=== PATIENT | female | born 1965 | race Caucasian/White ===

== ENCOUNTER → 2020-11-01 15:47 | Outpatient (BNVA) | payer BC, SELFPAY | PROVIDERS: PCP Internal Medicine; Visit Provider Internal Medicine ==

== ENCOUNTER → 2021-05-08 13:38 | Outpatient (BNVA) | payer BC, SELFPAY | PROVIDERS: PCP Internal Medicine; Visit Provider Internal Medicine ==

== ENCOUNTER → 2021-08-01 15:45 | Outpatient (BNVA) | payer BC, SELFPAY | PROVIDERS: PCP Internal Medicine; Visit Provider Internal Medicine ==

== ENCOUNTER → 2021-11-07 15:36 | Outpatient (BNVA) | payer BC, SELFPAY | PROVIDERS: PCP Internal Medicine; Visit Provider Internal Medicine ==

== ENCOUNTER → 2022-10-29 15:26 | Outpatient (BNVA) | payer BC, SELFPAY | PROVIDERS: PCP Internal Medicine; Visit Provider Internal Medicine | DX: Z13.89 Encounter for screening for other disorder (principal) ==

== ENCOUNTER → 2023-03-04 09:45 | Outpatient (BNVA) | payer BC, SELFPAY | PROVIDERS: PCP Internal Medicine; Visit Provider Internal Medicine ==

== ENCOUNTER 2023-04-24 10:39 | Outpatient (AMB) | payer BC, SELFPAY ==
--- NOTE | 2023-04-24 10:42 | MHC.OFFVIS ---
Intake Vital Signs 04/24/23 10:43 Height 5 ft 4 in Weight 123 lb 7.342 oz BMI 21.2 BP 122/78 Blood Pressure Location Lt brachial Position Sitting Pulse 77 Pulse Source Pulse Oximeter Pulse Oximetry (%) 100 Oxygen Delivery Method Room Air Intake Visit Reasons: asthma Hogshead Opener Required: No Allergies amoxicillin Allergy (Unknown, Verified 04/24/23 10:53) stomach upset doxycycline [DOXYCYCLINE] Allergy (Unknown, Verified 04/24/23 10:53) NAUSEA & VOMITING erythromycin base [ERYTHROMYCIN BASE] Allergy (Unknown, Verified 04/24/23 10:53) NAUSEA & VOMITING prednisone Adverse Reaction (Unknown, Verified 04/24/23 10:53) emotional but liquid is ok Medication List - Last Reconciled 04/24/23 by Carly Cordero MD albuterol sulfate 90 mcg/actuation 2 puffs PO Q6H PRN apple cider vinegar 600 mg PO DAILY azelaic acid 15% topical QAM azelastine 2 sprays intranasal BID PRN cholecalciferol (vitamin D3) 50 mcg PO DAILY clotrimazole-betamethasone 1-0.05 % appl topical conj estrog-medroxyprogest alexandra 0.3-1.5 mg 1 tab PO DAILY estradiol 0.01%(0.1mg/gram) 0.5 grams vaginal 3XW Flovent HFA 110 mcg/actuation (fluticasone propionate) 2 puffs PO BID NS fluticasone propionate 50 mcg/actuation 1 spray intranasal DAILY lactobacillus combination no.8 (Adult Probiotic) 3,000 mmu cells PO DAILY metronidazole 1% (Noritate) appl topical multivitamin 1 tab PO DAILY omega 1-cyk-ikf-fish oil 60-90-500 mg (Fish Oil) 1 cap PO DAILY prednisone 10 mg (10 mL) PO BID 6 days Do you need a note to return to daycare/school/sports/work: No HPI asthma HPI Details 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 LATELY SHE HAS BEEN FREE OF ANY NASAL OR RESPIRATORY SYMPTOMS. EXCEPT THAT SHE STILL FEELS SOMEWHAT TIGHT IN HER CHEST OFF AND ON, BLAMES IT ON POOR AIR QUALITY. SHE IS USING FLOVENT-110 2 PUFFS B.I.D. AND HARDLY NEEDS TO USE THE ALBUTEROL THESE DAYS FOR NASAL ALLERGY SHE CONTINUES TO USE AZELASTINE NASAL SPRAY TO SPRAY IS B.I.D. AND ALSO FLONASE 1 SPRAY EACH NOSTRIL DAILY. SHE IS VERY SENSITIVE TO ANY CHANGE IN AIR QUALITY, AND TRIES TO WE ARE THE MASK WHENEVER SHE IS OUTDOORS OR IN PUBLIC PLACES. [facility]LY [facility], [facility] Medical History Allergic rhinitis Asthma Chest discomfort Social History Patient Tobacco Use Status: Never used Tobacco Review of Systems Const All systems reviewed & are unremarkable except as noted in HPI and below Eyes Reports no additional complaints ENT Reports no additional complaints Card Reports chest pain (S more like a burning pain in the mid sternum, not related to any physical ), Denies irregular heart rhythm and Denies leg edema Resp Reports as per HPI GI Reports heartburn (Controlled with Prilosec) Reports no additional complaints Skin/Breast Reports system reviewed and no additional complaints, except as documented Neuro Reports no additional complaints Psych Reports no additional complaints Physical Exam Const General: healthy appearing, comfortable, no acute distress, alert and awake Orientation/consciousness: patient oriented x3 HEENT Head: Yes normal to inspection General nose exam: No nasal polyps present and Other nasal findings present (She has marked deflection of the nasal septum to the right side as usual, ) Face and sinus: Yes sinuses nontender Mouth: oropharynx normal Throat: Yes posterior oropharynx normal Eyes General: appearance normal, both eyes and all related structures Neck Neck: Yes normal visual inspection, Yes no lymphadenopathy, Yes trachea midline and Yes no JVD Thyroid: Thyroid normal Chest Chest palpation & inspection: normal inspection of the chest, normal palpation of entire chest wall and no tenderness Resp Other: Percussion note is very resonant, has good breath sounds, equal on both sides . No wheezes rhonchi or crepitations are heard today. Cardio Palpation: normal PMI Rate: regular rate Rhythm: regular rhythm Heart sounds: no gallops and no murmurs Peripheral pulses: Peripheral pulses 2+ throughout GI Palpation (GI): Soft to palpation, nontender, No hepatosplenomegaly present and no masses Auscultation: normal bowel sounds Back/Spine/Pelvis Thoracic/Lumbar Spine: thoracic and lumbar spine normal to inspection Skin General skin exam: no rashes or lesions noted Neuro General: patient oriented x3 and no focal motor deficits Cranial nerves: Yes CN's II-XII intact bilaterally Extrem General: Yes normal to inspection, Yes no clubbing, cyanosis or edema and Yes no calf tenderness Psych Appearance: grossly normal and well kempt Speech and movement: Normal speech and movement present Assessment & Plan Assessment & Plan (1) Allergic rhinitis: Comment: She has chronic rhinitis, around the year, without specific or identifiable triggers. With the current regimen it is under control. She follows up with ENT specialist ,Dr. Avila . [place] : Azelastin nasal spray 2 sprays in each nare daily Flonase 2 sprays prn Zyrtec 10 mg daily at night ( patient is alerted that she may feel sleepy are tired sometime due to side effect of Zyrtec) Advil sinus and cold tab , in AM Code(s): J30.9 - Allergic rhinitis, unspecified (2) Asthma: Comment: Mild to moderate, intermittent, bronchial asthma, seems well controlled. [place]: Flovent-1102 puffs b.i.d.. If she feels like having an acute exacerbation , she can use 2 puffs Q i.d. for a few days and then go back to b.i.d.. Albuterol HFA 2 puffs Q 4-6 hours p.r.n.. Avoid exposure to anyone with common cold , and is best to we are the mask when she goes outdoors or in public places. Code(s): J45.909 - Unspecified asthma, uncomplicated (3) Chest discomfort: Comment: The description is intermittent and very nonspecific. I explained to her that this does not seem to be related to lungs. But if in doubt she can always is use a few extra doses of Flovent inhaler. Code(s): R07.89 - Other chest pain Coding Level of Care Code Est Pt Level 3 (88828) Diagnoses Allergic rhinitis J30.9 Asthma J45.909 Chest discomfort R07.89
[2023-04-24 10:43] VITALS: BP 122/78; PULSE 77; O2SAT 100; BMI 21.2
== END 2023-04-24 10:55 | disposition home or self-care (01) ==
PROVIDERS: PCP Internal Medicine; Visit Provider Internal Medicine
DX: J45.909 Unspecified asthma, uncomplicated (principal); R07.89 Other chest pain
CPT/HCPCS: 99213

== ENCOUNTER → 2023-04-24 10:39 | Outpatient (BNVA) | payer BC, SELFPAY | PROVIDERS: PCP Internal Medicine; Visit Provider Internal Medicine ==

== ENCOUNTER 2023-05-21 09:18 | Outpatient (AMB) | payer BC, SELFPAY ==
[2023-05-21 09:20] VITALS: BP 128/62; PULSE 82; O2SAT 99; BMI 21.2
--- NOTE | 2023-05-21 09:20 | MHC.OFFVIS ---
Intake Vital Signs 05/21/23 09:20 Height 5 ft 4 in Weight 123 lb 7.342 oz BMI 21.2 BP 128/62 Blood Pressure Location Lt brachial Position Sitting Pulse 82 Pulse Source Pulse Oximeter Pulse Oximetry (%) 99 Oxygen Delivery Method Room Air Intake Visit Reasons: productive cough Allergies amoxicillin Allergy (Unknown, Verified 05/21/23 09:25) stomach upset doxycycline [DOXYCYCLINE] Allergy (Unknown, Verified 05/21/23 09:25) NAUSEA & VOMITING erythromycin base [ERYTHROMYCIN BASE] Allergy (Unknown, Verified 05/21/23 09:25) NAUSEA & VOMITING prednisone Adverse Reaction (Unknown, Verified 05/21/23 09:25) emotional but liquid is ok Medication List - Last Reconciled 05/21/23 by Carly Cordero MD albuterol sulfate 90 mcg/actuation 2 puffs PO Q6H PRN apple cider vinegar 600 mg PO DAILY azelaic acid 15% topical QAM azelastine 2 sprays intranasal BID PRN cholecalciferol (vitamin D3) 50 mcg PO DAILY clotrimazole-betamethasone 1-0.05 % appl topical conj estrog-medroxyprogest alexandra 0.3-1.5 mg 1 tab PO DAILY estradiol 0.01%(0.1mg/gram) 0.5 grams vaginal 3XW Flovent HFA 110 mcg/actuation (fluticasone propionate) 2 puffs PO BID NS fluticasone propionate 50 mcg/actuation 1 spray intranasal DAILY lactobacillus combination no.8 (Adult Probiotic) 3,000 mmu cells PO DAILY metronidazole 1% (Noritate) appl topical multivitamin 1 tab PO DAILY omega 0-uyb-rki-fish oil 60-90-500 mg (Fish Oil) 1 cap PO DAILY prednisone 10 mg (10 mL) PO BID 6 days Do you need a note to return to daycare/school/sports/work: No HPI productive cough HPI Details 58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 She is a known case of chronic allergic rhinitis, and bronchial asthma. She has perineal environmental allergies, and has frequent flare ups. She has been going to Dr. arely Avila the human services program specialist, for many years. Has had immunotherapy injections in the past but gave up. She is prone to have frequent flare ups of rhinosinusitis, when she gets increased amount of phlegm. Usually response to a course of Z-Naresh and oral prednisone in the liquid form. Most of the time her asthma is under controlled with the use of Flovent. The issue is that she ends up using Z-Naresh and oral prednisone quite often. IGE level back in 2019 was only slightly elevated. [facility] Medical History Allergic rhinitis Asthma Chest discomfort Social History Patient Tobacco Use Status: Never used Tobacco Review of Systems Const All systems reviewed & are unremarkable except as noted in HPI and below Eyes Reports no additional complaints ENT Reports no additional complaints Card Reports chest pain (S more like a burning pain in the mid sternum, not related to any physical ), Denies irregular heart rhythm and Denies leg edema Resp Reports as per HPI GI Reports heartburn (Controlled with Prilosec) Reports no additional complaints Skin/Breast Reports system reviewed and no additional complaints, except as documented Neuro Reports no additional complaints Psych Reports no additional complaints Physical Exam Vital Signs: BMI result Body Mass Index 21.2 Const General: healthy appearing, comfortable, no acute distress, alert and awake Orientation/consciousness: patient oriented x3 HEENT Head: Yes normal to inspection General nose exam: No nasal polyps present and Other nasal findings present (She has marked deflection of the nasal septum to the right side as usual, ) Face and sinus: Yes sinuses nontender Mouth: oropharynx normal Throat: Yes posterior oropharynx normal Eyes General: appearance normal, both eyes and all related structures Neck Neck: Yes normal visual inspection, Yes no lymphadenopathy, Yes trachea midline and Yes no JVD Thyroid: Thyroid normal Chest Chest palpation & inspection: normal inspection of the chest, normal palpation of entire chest wall and no tenderness Resp Other: Percussion note is very resonant, has good breath sounds, equal on both sides . No wheezes rhonchi or crepitations are heard today. Cardio Palpation: normal PMI Rate: regular rate Rhythm: regular rhythm Heart sounds: no gallops and no murmurs Peripheral pulses: Peripheral pulses 2+ throughout GI Palpation (GI): Soft to palpation, nontender, No hepatosplenomegaly present and no masses Auscultation: normal bowel sounds Back/Spine/Pelvis Thoracic/Lumbar Spine: thoracic and lumbar spine normal to inspection Skin General skin exam: no rashes or lesions noted Neuro General: patient oriented x3 and no focal motor deficits Cranial nerves: Yes CN's II-XII intact bilaterally Extrem General: Yes normal to inspection, Yes no clubbing, cyanosis or edema and Yes no calf tenderness Psych Appearance: grossly normal and well kempt Speech and movement: Normal speech and movement present Assessment & Plan Assessment & Plan (1) Asthma: Comment: Mild to moderate, intermittent, bronchial asthma, seems well controlled. [place]: Flovent-1102 puffs b.i.d.. If she feels like having an acute exacerbation , she can use 2 puffs Q i.d. for a few days and then go back to b.i.d.. Albuterol HFA 2 puffs Q 4-6 hours p.r.n.. Avoid exposure to anyone with common cold , and is best to we are the mask when she goes outdoors or in public places. Code(s): J45.909 - Unspecified asthma, uncomplicated (2) Allergic rhinitis: Comment: She has chronic rhinitis, around the year, without specific or identifiable triggers. With the current regimen it is under control. She follows up with ENT specialist ,Dr. Avila . [place] : Azelastin nasal spray 2 sprays in each nare daily Flonase 2 sprays prn Zyrtec 10 mg daily at night ( patient is alerted that she may feel sleepy are tired sometime due to side effect of Zyrtec) Advil sinus and cold tab , in AM CBC WITH DIFF AND IGE LEVELS ( ALLERGY INDICATORS ) ARE ORDERED . Code(s): J30.9 - Allergic rhinitis, unspecified Orders: Orders Complete Blood Count Man Dif Today J30.9 - Allergic rhinitis, unspecified, J45.909 - Unspecified asthma, uncomplicated Immunoglobulin E Today J30.9 - Allergic rhinitis, unspecified, J45.909 - Unspecified asthma, uncomplicated Coding Level of Care Code Est Pt Level 3 (29890) Diagnoses Asthma J45.909 Allergic rhinitis J30.9
== END 2023-05-21 09:39 | disposition home or self-care (01) ==
PROVIDERS: PCP Internal Medicine; Visit Provider Internal Medicine
DX: J45.909 Unspecified asthma, uncomplicated (principal)
CPT/HCPCS: 99213

== ENCOUNTER 2023-05-21 09:18 | Outpatient (REF) | payer BC, SELFPAY ==
[2023-05-21 10:34] LABS: Baso%MD 0.6 %; Eos%MD 3.5 %; Hematocrit 37.4 % (37.0-47.0); Hemoglobin 12.3 g/dl (12.0-16.0); IG%MD 0.1 %; Lymph%MD 45.1 %; Mean Corpuscular HGB Conc 32.9 g/dl (31.0-35.0); Mean Corpuscular Hemoglobin 31.4 pg (27.0-33.0); Mean Corpuscular Volume 95.4 fL (80.0-98.0); Mean Platelet Volume 9.4 fL (9.4-12.3); Mono%MD 11.1 %; Neut%MD 39.6 %; Platelet Count 297 X10*3/uL (160-400); Red Blood Count 3.92 X10*6/uL (4.20-5.50); Red Cell Distribution Width 11.8 % (11.0-16.0); White Blood Count 6.8 X10*3/uL (4.8-10.8)
[2023-05-21 11:07] LABS: Basophils Abs Manual 0.1 X10*3/uL (0.0-0.2); Basophils Percent Manual 2 % (0-2); Eosinophils Absolute Manual 0.2 X10*3/uL (0.0-0.4); Eosinophils Percent Manual 3 % (0-4); Lymphocytes Absolute Manual 2.7 X10*3/uL (1.2-4.9); Lymphocytes Percent Manual 39 % (20-40); Monocytes Percent Manual 14 % (2-11); Neutrophils Percent Manual 42 % (45-73)
[2023-05-21 11:08] LABS: Band Neutrophils Percent 0 % (3-5); Neutrophils Absolute Manual 2.9 X10*3/uL (2.0-8.3); Platelet Estimate NORMAL (NORMAL); Platelet Morphology Comment NORMAL; RBC Morphology NORMAL
[2023-05-23 06:19] LABS: Immunoglobulin E 125 kU/L (<OR=114)
== END 2023-05-21 09:19 | disposition home or self-care (01) ==
LOC: HO.LAB 09:18
PROVIDERS: PCP Internal Medicine; Visit Provider Internal Medicine
DX: J45.909 Unspecified asthma, uncomplicated (principal); Z79.899 Other long term (current) drug therapy
CPT/HCPCS: 36415; 82785; 85007; 85027

== ENCOUNTER 2023-07-09 15:48 | Outpatient (AMB) | payer BC, SELFPAY ==
[2023-07-09 16:03] VITALS: BP 112/60; PULSE 72; O2SAT 96; BMI 21.5
--- NOTE | 2023-07-09 16:03 | A.OFFVIS_ITS ---
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: Telegraph Repeater Mechanic offered & declined Accompanied by: Self / Same As Patient Allergies amoxicillin Allergy (Unknown, Verified 07/09/23 16:08) stomach upset doxycycline [DOXYCYCLINE] Allergy (Unknown, Verified 07/09/23 16:08) NAUSEA & VOMITING erythromycin base [ERYTHROMYCIN BASE] Allergy (Unknown, Verified 07/09/23 16:08) NAUSEA & VOMITING prednisone Adverse Reaction (Unknown, Verified 07/09/23 16:08) emotional but liquid is ok Medication List - Last Reconciled 07/09/23 by Constance Rodriguez LPN albuterol sulfate 90 mcg/actuation 2 puffs PO Q6H PRN apple cider vinegar 600 mg PO DAILY azelaic acid 15% topical QAM azelastine 2 sprays intranasal BID PRN cholecalciferol (vitamin D3) 50 mcg PO DAILY clotrimazole-betamethasone 1-0.05 % appl topical conj estrog-medroxyprogest alexandra 0.3-1.5 mg 1 tab PO DAILY estradiol 0.01%(0.1mg/gram) 0.5 grams vaginal 3XW Flovent HFA 110 mcg/actuation (fluticasone propionate) 2 puffs PO BID NS fluticasone propionate 50 mcg/actuation 1 spray intranasal DAILY lactobacillus combination no.8 (Adult Probiotic) 3,000 mmu cells PO DAILY metronidazole 1% (Noritate) appl topical multivitamin 1 tab PO DAILY omega 9-gje-cim-fish oil 60-90-500 mg (Fish Oil) 1 cap PO DAILY prednisone 10 mg (10 mL) PO BID 6 days HPI chest tightness HPI Details Nyla is a pleasant 58 year old female, never smoker, with underlying asthma and allergic rhinitis. She is well controlled on Flovent, albuterol PRN, flonase, alaway and zyrtec. Today she presents for an acute visit. She reports chest tightness, dry cough and difficulty taking a deep breath since Friday after doing yardwork. She denies using her albuterol during this time. She denies any fever or chills. 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 She took a COVID test this morning which was negative. [facility] Medical History Allergic rhinitis Asthma Chest discomfort Social History (Updated 07/09/23 @ 16:11 by Constance Rodriguez LPN) Patient Tobacco Use Status: Never used Tobacco Smoked in Last 30 Days: No Review of Systems Const Denies chills, Denies excessive sweating, Denies fever(s), Denies headache(s) and Denies night sweats Eyes Denies dry eyes and Reports itchy eyes ENT Reports Normal hearing present, Denies headache(s), Denies nasal congestion, Reports nasal discharge and Reports post nasal drip Card Denies chest pain, Denies chest pain at rest, Denies chest pain with activity, Denies claudication, Denies leg edema, Denies dyspnea, Denies dyspnea on exertion, Denies orthopnea and Denies paroxysmal nocturnal dyspnea Resp Denies chest congestion, Reports cough, Denies excessive phlegm production, Denies pain on inspiration, Denies pain with cough, Denies dyspnea, Denies dyspnea on exertion, Denies stridor and Denies wheezing Musc Denies myalgias Neuro Reports Normal hearing present and Denies headache(s) Endo Denies excessive sweating Louis/Lymph Denies lymphadenopathy Aller/Immun Reports itchy eyes, Reports seasonal rhinorrhea and Denies wheezing Physical Exam Vital Signs: Last Vital Signs Pulse 72 07/09/23 16:03 BP 112/60 07/09/23 16:03 Pulse Ox 96 07/09/23 16:03 Oxygen Delivery Method Room Air 07/09/23 16:03 BMI result Body Mass Index 21.5 Const General: cooperative, healthy appearing, comfortable, no acute distress, well developed and alert Orientation/consciousness: patient oriented x3 Limitations: no limitations HEENT Head: Yes normal to inspection, Yes normocephalic and Yes atraumatic Ears: hearing grossly normal bilaterally and external ears normal Eyes General: appearance normal, both eyes and all related structures Eyelids: Yes eyelids normal Sclerae: sclerae normal EOM: EOMs intact bilaterally Neck Neck: Yes normal visual inspection and Yes no lymphadenopathy Lymphatic: no lymphadenopathy noted Chest Chest palpation & inspection: normal inspection of the chest Resp Other: faint expiratory wheezing Effort & Inspection: normal respiratory effort, able to speak in complete sentences, no audible wheezes, no cough, no stridor, not tachypneic, no tripod positioning and no use of accessory muscles Cardio Jugular venous distension: no JVD Rate: regular rate Rhythm: regular rhythm Skin Other: warm, dry General skin exam: no rashes or lesions noted Neuro General: patient oriented x3 Cranial nerves: Yes Normal hearing present Cognition (Neuro): normal cognition Gait exam (Neuro): Normal gait present Extrem General: Yes normal to inspection, Yes capillary refill normal, Yes no clubbing, cyanosis or edema and Yes no pedal edema Psych Appearance: grossly normal and well kempt Speech and movement: Normal speech and movement present and Clear speech present Affect: normal affect Attitude: cooperative Thought process: Normal thought process present Thought content: Normal thought content present Insight: Good insight present (Psych) Judgement: Good judgement present (Psych) Assessment & Plan Assessment & Plan (1) Asthma: Code(s): J45.909 - Unspecified asthma, uncomplicated (2) Allergic rhinitis: Code(s): J30.9 - Allergic rhinitis, unspecified Plan Will treat asthma exacerbation with prednisone. Patient requesting liquid prednisone, as she has tolerated this in the past. Encouraged patient to use albuterol PRN when she develops chest tightness. Advised to continue current regimen of allergy medications and Flovent. All questions were answered and patient is in agreement of plan. She is aware to call the office if symptoms persist and seek emergent care if they worsen. Will follow up with Dr. Cordero for regularly scheduled appointment in August or sooner if needed. Medications: Refilled prednisone 10 mg (10 mL) PO BID 6 days 120 mL 0RF asthma Coding Level of Care Code Est Pt Level 3 (79195) Diagnoses Asthma J45.909 Allergic rhinitis J30.9
== END 2023-07-09 16:34 | disposition home or self-care (01) ==
LOC: HO.HPSW 15:48
PROVIDERS: PCP Internal Medicine; Visit Provider Nurse Practitioner Family
DX: J45.909 Unspecified asthma, uncomplicated (principal); J30.9 Allergic rhinitis, unspecified
CPT/HCPCS: 99213

== ENCOUNTER → 2023-07-09 15:48 | Outpatient (BNVA) | payer BC, SELFPAY | PROVIDERS: PCP Internal Medicine; Visit Provider Nurse Practitioner Family ==

== ENCOUNTER 2023-08-19 13:24 | Outpatient (AMB) | payer BC, SELFPAY ==
[2023-08-19 13:25] VITALS: BP 118/62; PULSE 79; O2SAT 98; BMI 20.6
--- NOTE | 2023-08-19 13:25 | A.OFFVIS_ITS ---
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 Pediatric Acute Care Unit Nurse: Pediatric Acute Care Unit Nurse offered & declined Accompanied by: Self / Same As Patient Allergies amoxicillin Allergy (Unknown, Verified 08/19/23 13:33) stomach upset doxycycline [DOXYCYCLINE] Allergy (Unknown, Verified 08/19/23 13:33) NAUSEA & VOMITING erythromycin base [ERYTHROMYCIN BASE] Allergy (Unknown, Verified 08/19/23 13:33) NAUSEA & VOMITING prednisone Adverse Reaction (Unknown, Verified 08/19/23 13:33) emotional but liquid is ok Medication List - Last Reconciled 08/19/23 by Constance Rodriguez LPN albuterol sulfate 90 mcg/actuation 2 puffs PO Q6H PRN apple cider vinegar 600 mg PO DAILY azelaic acid 15% topical QAM azelastine 2 sprays intranasal BID PRN cholecalciferol (vitamin D3) 50 mcg PO DAILY clotrimazole-betamethasone 1-0.05 % appl topical conj estrog-medroxyprogest alexandra 0.3-1.5 mg 1 tab PO DAILY estradiol 0.01%(0.1mg/gram) 0.5 grams vaginal 3XW Flovent HFA 110 mcg/actuation (fluticasone propionate) 2 puffs PO BID NS fluticasone propionate 50 mcg/actuation 1 spray intranasal DAILY lactobacillus combination no.8 (Adult Probiotic) 3,000 mmu cells PO DAILY metronidazole 1% (Noritate) appl topical multivitamin 1 tab PO DAILY omega 4-wwp-wdf-fish oil 60-90-500 mg (Fish Oil) 1 cap PO DAILY prednisone 10 mg (10 mL) PO BID 6 days HPI SV chest tightness/cough HPI Details Nyla is a pleasant 58 year old female, never smoker, with underlying asthma and allergic rhinitis. She is well controlled on Flovent, albuterol PRN, flonase, alaway and zyrtec. Today she presents for an acute visit. She reports chest tightness, chest congestion, difficulty expectorating and dyspnea for the past week. She denies any wheezing at this time. She denies using her albuterol, and reports she could be using it more frequently. She denies any fever or chills. 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 [facility] Medical History Allergic rhinitis Asthma Chest discomfort (Updated 08/19/23 @ 13:36 by Constance Rodriguez LPN) Patient Tobacco Use Status: Never used Tobacco Smoked in Last 30 Days: No Review of Systems Const Denies chills, Denies excessive sweating, Denies fever(s), Denies headache(s) and Denies night sweats Eyes Denies dry eyes, Denies irritation and Denies itchy eyes ENT Reports Normal hearing present, Denies headache(s), Denies nasal congestion, Denies nasal discharge, Denies post nasal drip and Denies sore throat Card Denies chest pain, Denies chest pain at rest, Denies chest pain with activity, Denies claudication, Denies leg edema, Denies orthopnea and Denies paroxysmal nocturnal dyspnea Resp Reports chest congestion, Reports cough, Denies hemoptysis, Denies excessive phlegm production, Denies pain on inspiration, Denies pain with cough, Denies stridor and Denies wheezing Musc Denies myalgias Neuro Reports Normal hearing present and Denies headache(s) Endo Denies excessive sweating Louis/Lymph Denies lymphadenopathy Aller/Immun Denies itchy eyes, Denies seasonal rhinorrhea and Denies wheezing Physical Exam Vital Signs: Last Vital Signs Pulse 79 08/19/23 13:25 BP 118/62 08/19/23 13:25 Pulse Ox 98 08/19/23 13:25 Oxygen Delivery Method Room Air 08/19/23 13:25 BMI result Body Mass Index 20.6 Const General: cooperative, healthy appearing, comfortable, no acute distress, well developed and alert Orientation/consciousness: patient oriented x3 Limitations: no limitations HEENT Head: Yes normal to inspection, Yes normocephalic and Yes atraumatic Ears: hearing grossly normal bilaterally and external ears normal Eyes General: appearance normal, both eyes and all related structures Eyelids: Yes eyelids normal Sclerae: sclerae normal EOM: EOMs intact bilaterally Neck Neck: Yes normal visual inspection and Yes no lymphadenopathy Lymphatic: no lymphadenopathy noted Chest Chest palpation & inspection: normal inspection of the chest Resp Other: decreased air movement bilaterally Effort & Inspection: normal respiratory effort, able to speak in complete sentences, no audible wheezes, no stridor, not tachypneic, no tripod positioning and no use of accessory muscles Cardio Jugular venous distension: no JVD Rate: regular rate Rhythm: regular rhythm Skin Other: warm, dry General skin exam: no rashes or lesions noted Neuro General: patient oriented x3 Cranial nerves: Yes Normal hearing present Cognition (Neuro): normal cognition Gait exam (Neuro): Normal gait present Extrem General: Yes normal to inspection, Yes capillary refill normal, Yes no clubbing, cyanosis or edema and Yes no pedal edema Psych Appearance: grossly normal and well kempt Speech and movement: Normal speech and movement present and Clear speech present Affect: normal affect Attitude: cooperative Thought process: Normal thought process present Thought content: Normal thought content present Insight: Good insight present (Psych) Judgement: Good judgement present (Psych) Assessment & Plan Assessment & Plan (1) Asthma: Code(s): J45.909 - Unspecified asthma, uncomplicated (2) Allergic rhinitis: Code(s): J30.9 - Allergic rhinitis, unspecified Plan Will treat asthma exacerbation with prednisone and bronchitic symptoms with a zpak. Patient requesting liquid prednisone, as she has tolerated this in the past. Educated patient on when to use albuterol PRN when she develops chest tightness. Advised to continue current regimen of allergy medications and Flovent. Consider switching to ICS/LABA. All questions were answered and patient is in agreement of plan. She is aware to call the office if symptoms persist and seek emergent care if they worsen. Will follow up with Dr. Cordero for regularly scheduled appointment in two weeks or sooner if needed. Medications: New azithromycin For 250 mg dose pack: take 500 mg today (day 1), then 250 mg for 4 days (days 2-5) PO 6 tabs 0RF Refilled prednisone 10 mg (10 mL) PO BID 6 days 120 mL 0RF asthma albuterol sulfate 90 mcg/actuation 2 puffs PO Q6H PRN 8.5 ea 5RF shortness of breath or wheezing Coding Level of Care Code Est Pt Level 4 (47823) Diagnoses Asthma J45.909 Allergic rhinitis J30.9
== END 2023-08-19 13:47 | disposition home or self-care (01) ==
PROVIDERS: PCP Internal Medicine; Visit Provider Nurse Practitioner Family
DX: J45.909 Unspecified asthma, uncomplicated (principal); J30.9 Allergic rhinitis, unspecified
CPT/HCPCS: 99214

== ENCOUNTER → 2023-08-19 13:24 | Outpatient (BNVA) | payer BC, SELFPAY | PROVIDERS: PCP Internal Medicine; Visit Provider Nurse Practitioner Family ==

== ENCOUNTER 2023-09-04 16:01 | Outpatient (AMB) | payer BC, SELFPAY ==
[2023-09-04 16:06] VITALS: BP 122/80; PULSE 72; O2SAT 99; BMI 21.3
--- NOTE | 2023-09-04 16:06 | A.OFFVIS_ITS ---
Intake Vital Signs 09/04/23 16:06 Height 5 ft 4 in Weight 124 lb BMI 21.3 BP 122/80 Blood Pressure Location Lt brachial Position Sitting Pulse 72 Pulse Source Pulse Oximeter Pulse Oximetry (%) 99 Oxygen Delivery Method Room Air Intake Visit Reasons: asthma Intake Note: pt is here for a follow up sometimes little tight, had sick visit with Yolie a few weeks ago, tx with antibiotic. Digital Advertising Analyst Required: No Allergies amoxicillin Allergy (Unknown, Verified 09/04/23 16:23) stomach upset doxycycline [DOXYCYCLINE] Allergy (Unknown, Verified 09/04/23 16:23) NAUSEA & VOMITING erythromycin base [ERYTHROMYCIN BASE] Allergy (Unknown, Verified 09/04/23 16:23) NAUSEA & VOMITING prednisone Adverse Reaction (Unknown, Verified 09/04/23 16:23) emotional but liquid is ok Medication List - Last Reconciled 09/04/23 by Carly Cordero MD albuterol sulfate 90 mcg/actuation 2 puffs PO Q6H PRN apple cider vinegar 600 mg PO DAILY azelaic acid 15% topical QAM azelastine 2 sprays intranasal BID PRN cholecalciferol (vitamin D3) 50 mcg PO DAILY clotrimazole-betamethasone 1-0.05 % appl topical conj estrog-medroxyprogest alexandra 0.3-1.5 mg 1 tab PO DAILY estradiol 0.01%(0.1mg/gram) 0.5 grams vaginal 3XW Flovent HFA 110 mcg/actuation (fluticasone propionate) 2 puffs PO BID NS fluticasone propionate 50 mcg/actuation 1 spray intranasal DAILY lactobacillus combination no.8 (Adult Probiotic) 3,000 mmu cells PO DAILY metronidazole 1% (Noritate) appl topical multivitamin 1 tab PO DAILY omega 6-wvn-lcl-fish oil 60-90-500 mg (Fish Oil) 1 cap PO DAILY prednisone 10 mg (10 mL) PO BID 6 days Do you need a note to return to daycare/school/sports/work: No HPI asthma HPI Details 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 SHE IS UP TO DATE WITH VACCINATION. SHE HAD ACUTE EXACERBATION IN APRIL AND THEN IN JULY, WHEN SHE NEEDED A SHORT COURSE OF PREDNISONE. TODAY SHE IS FEELING FINE AND OFFERS NO COMPLAINTS. [facility] Medical History Chest discomfort Asthma Allergic rhinitis Social History Patient Tobacco Use Status: Never used Tobacco Review of Systems Const All systems reviewed & are unremarkable except as noted in HPI and below Eyes Reports no additional complaints ENT Reports no additional complaints and Reports Normal hearing present Card Reports chest pain (S more like a burning pain in the mid sternum, not related to any physical ), Denies irregular heart rhythm and Denies leg edema Resp Reports as per HPI GI Reports heartburn (Controlled with Prilosec) Reports no additional complaints Skin/Breast Reports system reviewed and no additional complaints, except as documented Neuro Reports no additional complaints and Reports Normal hearing present Psych Reports no additional complaints Physical Exam Vital Signs: Last Vital Signs Pulse 72 09/04/23 16:06 BP 122/80 09/04/23 16:06 Pulse Ox 99 09/04/23 16:06 Oxygen Delivery Method Room Air 09/04/23 16:06 BMI result Body Mass Index 21.3 Const General: cooperative, healthy appearing, comfortable, no acute distress, well developed and alert Orientation/consciousness: patient oriented x3 Limitations: no limitations HEENT Head: Yes normal to inspection, Yes normocephalic and Yes atraumatic Ears: hearing grossly normal bilaterally and external ears normal General nose exam: No nasal polyps present and Other nasal findings present (She has marked deflection of the nasal septum to the right side as usual, ) Face and sinus: Yes sinuses nontender Mouth: oropharynx normal Throat: Yes posterior oropharynx normal Eyes General: appearance normal, both eyes and all related structures Eyelids: Yes eyelids normal Sclerae: sclerae normal EOM: EOMs intact bilaterally Neck Neck: Yes normal visual inspection and Yes no lymphadenopathy Thyroid: Thyroid normal Lymphatic: no lymphadenopathy noted Chest Chest palpation & inspection: normal inspection of the chest, normal palpation of entire chest wall and no tenderness Resp Other: PERCUSSION. NOTE IS RESONANT BOTH LUNGS ARE CLEAR TO AUSCULTATION. NO WHEEZES RHONCHI OR CREPITATIONS ARE HEARD TODAY. Cardio Jugular venous distension: no JVD Palpation: normal PMI Rate: regular rate Rhythm: regular rhythm Heart sounds: no gallops and no murmurs Peripheral pulses: Peripheral pulses 2+ throughout GI Palpation (GI): Soft to palpation, nontender, No hepatosplenomegaly present and no masses Auscultation: normal bowel sounds Back/Spine/Pelvis Thoracic/Lumbar Spine: thoracic and lumbar spine normal to inspection Skin Other: warm, dry General skin exam: no rashes or lesions noted Neuro General: patient oriented x3 Cranial nerves: Yes Normal hearing present Cognition (Neuro): normal cognition Gait exam (Neuro): Normal gait present Extrem General: Yes normal to inspection, Yes capillary refill normal, Yes no clubbing, cyanosis or edema and Yes no pedal edema Psych Appearance: grossly normal and well kempt Speech and movement: Normal speech and movement present and Clear speech present Assessment & Plan Assessment & Plan (1) Asthma: Comment: SHE HAS CHRONIC BRONCHIAL ASTHMA, MOSTLY ALLERGIC, AND SOMETIMES SECONDARY TO VIRAL ILLNESS. AT PRESENT IT IS WELL CONTROLLED. Code(s): J45.909 - Unspecified asthma, uncomplicated Plan: ADVISED TO CONTINUE THE CURRENT MEDICATION FOLLOWS : FLUTICASONE PROPIONATE-110 2 PUFFS B.I.D. ALBUTEROL HFA 2 PUFFS Q 6 HOURS P.R.N.. I HAVE ALSO ORDERED A SUPPLY THE OF THE QUIT PREDNISONE , FOR HER TO TAKE IN CASE OF ACUTE EXACERBATION. WITH THIS BEING ON HAND SHE CAN USUALLY AVOID COMING TO THE EMERGENCY ROOM ARE URGENT CARE. (2) Allergic rhinitis: Comment: SHE HAS CHRONIC ALLERGIC RHINITIS, FLARES UP DUE TO CHANGE IN WEATHER. CURRENTLY VERY STABLE. ADVISED TO KEEP ON USING THE CURRENT MEDS. Code(s): J30.9 - Allergic rhinitis, unspecified Plan: TX: AZELASTINE 2 SPRAY INTRANASAL B.I.D. NEEDED FLONASE 50 MCG 1 SPRAY INTRANASAL DAILY Medications: New fluticasone propionate 110 mcg/actuation administer with spacer 2 puffs inhalation BID 12 grams 5RF ASTHMA 30 days Refilled prednisone 10 mg (10 mL) PO BID 120 mL 1RF asthma 6 days Coding Level of Care Code Est Pt Level 3 (34709) Diagnoses Asthma J45.909 Allergic rhinitis J30.9
== END 2023-09-04 16:24 | disposition home or self-care (01) ==
PROVIDERS: PCP Internal Medicine; Visit Provider Internal Medicine
DX: J45.909 Unspecified asthma, uncomplicated (principal); J30.9 Allergic rhinitis, unspecified
CPT/HCPCS: 99213

== ENCOUNTER → 2023-09-04 16:01 | Outpatient (BNVA) | payer BC, SELFPAY | PROVIDERS: PCP Internal Medicine; Visit Provider Internal Medicine ==

== ENCOUNTER 2023-09-16 15:44 | Outpatient (REF) | payer BC, SELFPAY ==
--- NOTE | ~2023-09-16 | XR_ITS ---
EXAMINATION: XR CHEST CLINICAL INFORMATION: Chest pain COMPARISON: None available. TECHNIQUE: 2 views of the chest were obtained. FINDINGS: Lungs clear. No pleural effusions. Heart and pulmonary vessels are normal. XR/XR chest 2V IMPRESSION: No active disease.
== END 2023-09-16 15:45 | disposition home or self-care (01) ==
LOC: HO.XRAY 15:44
PROVIDERS: Visit Provider Internal Medicine
DX: R07.89 Other chest pain (principal); R05.9 Cough, unspecified
CPT/HCPCS: 71046

== ENCOUNTER 2024-01-13 11:02 | Outpatient (AMB) | payer BC, SELFPAY ==
--- NOTE | 2024-01-13 11:11 | MHC.OFFVIS ---
Intake Vital Signs 01/13/24 11:18 Height 5 ft 4 in Weight 124 lb BMI 21.3 BP 122/78 Blood Pressure Location Lt brachial Position Sitting Pulse 83 Pulse Source Pulse Oximeter Pulse Oximetry (%) 97 Oxygen Delivery Method Room Air Intake Visit Reasons: asthma Intake Note: pt is here for follow up and chest tightness is starting, 2nd shingle shot of Friday Hop Separator Required: No Allergies amoxicillin Allergy (Unknown, Verified 01/13/24 11:33) stomach upset doxycycline [DOXYCYCLINE] Allergy (Unknown, Verified 01/13/24 11:33) NAUSEA & VOMITING erythromycin base [ERYTHROMYCIN BASE] Allergy (Unknown, Verified 01/13/24 11:33) NAUSEA & VOMITING prednisone Adverse Reaction (Unknown, Verified 01/13/24 11:33) emotional but liquid is ok Medication List - Last Reconciled 01/13/24 by Carly Cordero MD albuterol sulfate 90 mcg/actuation 2 puffs PO Q6H PRN apple cider vinegar 600 mg PO DAILY azelaic acid 15% topical QAM azelastine 2 sprays intranasal BID PRN cholecalciferol (vitamin D3) 50 mcg PO DAILY clotrimazole-betamethasone 1-0.05 % appl topical conj estrog-medroxyprogest alexandra 0.3-1.5 mg 1 tab PO DAILY estradiol 0.01%(0.1mg/gram) 0.5 grams vaginal 3XW fluticasone propionate 50 mcg/actuation 1 spray intranasal DAILY fluticasone propionate 110 mcg/actuation 2 puffs inhalation BID 30 days lactobacillus combination no.8 (Adult Probiotic) 3,000 mmu cells PO DAILY metronidazole 1% (Noritate) appl topical multivitamin 1 tab PO DAILY omega 8-zgc-vav-fish oil 60-90-500 mg (Fish Oil) 1 cap PO DAILY Do you need a note to return to daycare/school/sports/work: No HPI asthma HPI Details 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 She is being followed closely for her chronic allergic rhinitis/bronchial asthma. Complains of a nonspecific discomfort in the mid chest, there is no special reason except that she did lot of yd work yesterday. She has lot of mixed environmental allergies. 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 So her allergies are more frequent during the summer months. Luckily in the last 4 months she has been fairly stable. She had to use only 1 course of prednisone. She has had no acute respiratory infection. [facility] Medical History Cough Chest discomfort Asthma Allergic rhinitis Social History Patient Tobacco Use Status: Never used Tobacco Review of Systems Const All systems reviewed & are unremarkable except as noted in HPI and below Eyes Reports no additional complaints ENT Reports no additional complaints and Reports Normal hearing present Card Reports chest pain (S more like a burning pain in the mid sternum, not related to any physical ), Denies irregular heart rhythm and Denies leg edema Resp Reports as per HPI GI Reports heartburn (Controlled with Prilosec) Reports no additional complaints Skin/Breast Reports system reviewed and no additional complaints, except as documented Neuro Reports no additional complaints and Reports Normal hearing present Psych Reports no additional complaints Physical Exam Const General: cooperative, healthy appearing, comfortable, no acute distress, well developed and alert Orientation/consciousness: patient oriented x3 Limitations: no limitations HEENT Head: Yes normal to inspection, Yes normocephalic and Yes atraumatic Ears: hearing grossly normal bilaterally and external ears normal General nose exam: No nasal polyps present and Other nasal findings present (She has marked deflection of the nasal septum to the right side as usual, ) Face and sinus: Yes sinuses nontender Mouth: oropharynx normal Throat: Yes posterior oropharynx normal Eyes General: appearance normal, both eyes and all related structures Eyelids: Yes eyelids normal Sclerae: sclerae normal EOM: EOMs intact bilaterally Neck Neck: Yes normal visual inspection and Yes no lymphadenopathy Thyroid: Thyroid normal Lymphatic: no lymphadenopathy noted Chest Chest palpation & inspection: normal inspection of the chest, normal palpation of entire chest wall and no tenderness Resp Other: PERCUSSION. NOTE IS RESONANT BOTH LUNGS ARE CLEAR TO AUSCULTATION. NO WHEEZES RHONCHI OR CREPITATIONS ARE HEARD TODAY. Cardio Jugular venous distension: no JVD Palpation: normal PMI Rate: regular rate Rhythm: regular rhythm Heart sounds: no gallops and no murmurs Peripheral pulses: Peripheral pulses 2+ throughout GI Palpation (GI): Soft to palpation, nontender, No hepatosplenomegaly present and no masses Auscultation: normal bowel sounds Back/Spine/Pelvis Thoracic/Lumbar Spine: thoracic and lumbar spine normal to inspection Skin Other: warm, dry General skin exam: no rashes or lesions noted Neuro General: patient oriented x3 Cranial nerves: Yes Normal hearing present Cognition (Neuro): normal cognition Gait exam (Neuro): Normal gait present Extrem General: Yes normal to inspection, Yes capillary refill normal, Yes no clubbing, cyanosis or edema and Yes no pedal edema Psych Appearance: grossly normal and well kempt Speech and movement: Normal speech and movement present and Clear speech present Assessment & Plan Assessment & Plan (1) Allergic rhinitis: Comment: SHE HAS CHRONIC ALLERGIC RHINITIS, FLARES UP DUE TO CHANGE IN WEATHER. CURRENTLY VERY STABLE. Code(s): J30.9 - Allergic rhinitis, unspecified Plan: ADVISED TO KEEP ON USING THE CURRENT MEDS. (2) Asthma: Comment: SHE HAS CHRONIC BRONCHIAL ASTHMA, MOSTLY ALLERGIC, AND SOMETIMES SECONDARY TO VIRAL ILLNESS. AT PRESENT IT IS WELL CONTROLLED. Code(s): J45.909 - Unspecified asthma, uncomplicated Plan: CONTINUE THE PRESENT REGIMEN INCLUDING FLUTICASONE PROPIONATE 1102 PUFFS B.I.D. ALBUTEROL HFA 2 PUFFS Q 6 HOURS P.R.N.. (3) Chest discomfort: Comment: The description is intermittent and very nonspecific. Code(s): R07.89 - Other chest pain Plan: I explained to her that this does not seem to be related to lungs. But if in doubt she can always is use a few extra doses of Flovent inhaler. I TOLD HER THAT INTERMITTENT PRESSURE SOMETIME MAY BE DUE TO THE TYPE OF WORK SHE DOES, CAUSING CHEST STRAIN. Coding Level of Care Code Est Pt Level 3 (63952) Diagnoses Allergic rhinitis J30.9 Asthma J45.909 Chest discomfort R07.89
[2024-01-13 11:18] VITALS: BP 122/78; PULSE 83; O2SAT 97; BMI 21.3
== END 2024-01-13 11:34 | disposition home or self-care (01) ==
PROVIDERS: PCP Internal Medicine; Visit Provider Internal Medicine
DX: J30.9 Allergic rhinitis, unspecified (principal); J45.909 Unspecified asthma, uncomplicated; R07.89 Other chest pain
CPT/HCPCS: 99213

== ENCOUNTER → 2024-01-13 11:02 | Outpatient (BNVA) | payer BC, SELFPAY | PROVIDERS: PCP Internal Medicine; Visit Provider Internal Medicine ==

== ENCOUNTER 2024-07-11 18:26 | Emergency (ER) | payer BC, SELFPAY ==
--- NOTE | ~2024-07-11 | CT_ITS ---
EXAMINATION: CT HEAD WITHOUT CONTRAST CLINICAL INFORMATION: Generalized weakness. Hypertension. COMPARISON: None available. TECHNIQUE: Contiguous axial imaging was performed from the skull base to vertex without intravenous administration of contrast. This CT examination was performed using dose optimization techniques as appropriate, variously including the following: *Automated exposure control *Adjustment of mA and/or kV according to patient size (this includes techniques or standardized protocols for targeted exams where dose is matched to indication/reason for exam; i.e. extremities or head) *Use of iterative reconstruction technique DLP: 577 mGy-cm FINDINGS: There is no evidence of acute intracranial hemorrhage, midline shift or mass effect. Fritz to white matter differentiation is well preserved. No evidence of acute territorial edematous infarction. No abnormal extra-axial fluid collection. No significant abnormal parenchymal attenuation is noted. Ventricles and sulci are age appropriate. Minimal mucosal thickening is noted in the inferior right maxillary sinus. Rightward nasal septal deviation is noted. The remainder of the visualized paranasal sinuses are clear. Bilateral mastoid air cells and middle ear cavities are well-aerated. Osseous calvarium and calvarial soft tissues are grossly unremarkable. CT/CT head/brain wo IV con IMPRESSION: No evidence of acute intracranial abnormality. Specifically, there is no evidence of acute intracranial hemorrhage or acute territorial edematous infarction. Electronically signed by: Wallace Prado MD 07/11/2024 07:12 PM EDT
--- NOTE | ~2024-07-11 | XR_ITS ---
EXAMINATION: XR CHEST CLINICAL INFORMATION: Chest pain COMPARISON: None available. TECHNIQUE: Frontal view of the chest was obtained. FINDINGS: No significant abnormality is noted involving the heart, lungs, mediastinum, bony thorax or soft tissues. XR/XR chest 1V IMPRESSION: Unremarkable chest examination. Electronically signed by: Alf Mckeon MD 07/11/2024 07:30 PM EDT RP
[2024-07-11 18:46] VITALS: BP 173/96; PULSE 83; RESP 18; TEMP 36.4; O2SAT 100; BMI 21.5
--- NOTE | 2024-07-11 18:48 | ECG_ITS ---
Test Reason : ABD PAIN Blood Pressure : / mmHG Vent. Rate : 073 BPM Atrial Rate : 073 BPM P-R Int : 116 ms QRS Dur : 080 ms QT Int : 382 ms P-R-T Axes : 064 075 071 degrees QTc Int : 420 ms Normal sinus rhythm Normal ECG When compared with ECG of 24-SEP-2018 10:23, No significant change was found Referred By: Carlos Agustin Electronically Signed By:DIMAS BURNS
--- NOTE | 2024-07-11 18:51 | ED.GENADULT ---
HPI - General Adult General Chief complaint: Recheck/Abnormal Lab/Rx Stated complaint: blood pressure off/feeling dizzy Time Seen by Provider: 07/11/24 21:56 History of Present Illness ED Provider: Lachelle HPI narrative: 59-year-old female with past medical history of asthma and hypertension presenting for hypertension and lightheadedness. Patient states that she has been experiencing high blood pressures for the past week with systolics in the 150s and 160s. Today while at dinner she began experiencing lightheadedness and headache and had a systolic in the 190s. She was started on lisinopril by her PCP a few weeks ago and her dose was increased due to persistent hypertension. Patient is also complaining of chest tightness and had she used a rescue inhaler today. She denies chest pain. She states she was doing a lot of yard work outdoors yesterday and thinks that this set off her asthma. She denies diaphoresis, shortness of breath, fevers, chills, urinary symptoms. Patient states that she has been under a consider amount of stress during this time because her mother is in the hospital. Related Data Home Medications ?Medication ?Instructions ?Recorded ?Confirmed azelaic acid 15 % topical gel topical QAM 11/01/20 08/19/23 cholecalciferol (vitamin D3) 50 50 mcg PO DAILY 11/01/20 08/19/23 mcg (2,000 unit) capsule conj estrogen-medroxyprogesterone 1 tab PO DAILY 11/01/20 08/19/23 0.3 mg-1.5 mg tablet estradiol 0.01% (0.1 mg/gram) 0.5 g vaginal 3XW 11/01/20 08/19/23 vaginal cream lactobacillus combination no.8 3 3,000 mmu cells PO DAILY 11/01/20 08/19/23 billion cell capsule (Adult Probiotic) multivitamin 1 tab PO DAILY 11/01/20 07/09/23 azelastine 137 mcg (0.1 %) nasal 2 spray intranasal BID PRN 05/08/21 08/19/23 spray metronidazole 1 % topical cream appl topical 08/01/21 08/19/23 (Noritate) clotrimazole-betamethasone 1 appl topical 05/02/22 08/19/23 %-0.05 % topical cream apple cider vinegar 600 mg capsule 600 mg PO DAILY 10/29/22 08/19/23 omega 1-bdz-tpu-fish oil 60 mg-90 1 cap PO DAILY 10/29/22 08/19/23 mg-500 mg capsule (Fish Oil) fluticasone propionate 50 1 spray intranasal DAILY 03/04/23 08/19/23 mcg/actuation nasal spray,suspension lisinopril 07/11/24 Previous Rx's ?Medication ?Instructions ?Recorded albuterol sulfate 90 mcg/actuation 2 puff PO Q6H PRN shortness of 08/19/23 aerosol inhaler breath or wheezing #8.5 ea fluticasone propionate 110 2 puff inhalation BID #12 ea 03/01/24 mcg/actuation HFA aerosol inhaler Allergies Allergy/AdvReac Type Severity Reaction Status Date / Time amoxicillin Allergy Unknown stomach Verified 07/11/24 18:52 upset doxycycline [DOXYCYCLINE] Allergy Unknown NAUSEA & Verified 07/11/24 18:52 VOMITING erythromycin base Allergy Unknown NAUSEA & Verified 07/11/24 18:52 [ERYTHROMYCIN BASE] VOMITING prednisone AdvReac Unknown emotional Verified 07/11/24 18:52 but liquid is ok Review of Systems Review of Systems: Patient endorses headaches, lightheadedness, weakness, chest tightness Patient denies diaphoresis, shortness of breath, abdominal pain, nausea, vomiting, urinary symptoms Yes all other systems are reviewed and are negative PMFSH Past Medical History Medical History Cough Chest discomfort Asthma Allergic rhinitis Social History Social History Patient Tobacco Use Status: Never used Tobacco Smoked in Last 30 Days: No Use of substances other than those prescribed or required for medical reasons: No Advance Directives: Yes Advance Directives Information Provided: No Advance Directives on File: No Physical Exam ED Vital Signs: Vital Signs - 24 hr 07/11/24 21:41 07/11/24 22:26 07/12/24 00:05 Temperature 97.8 F 97.8 F Pulse Rate 67 68 61 Respiratory Rate 16 15 12 Blood Pressure 150/97 H 168/78 H 144/88 H Pulse Oximetry 99 99 99 Oxygen Delivery Method Room Air Room Air Room Air 07/12/24 00:14 Temperature 97.8 F Pulse Rate 61 Respiratory Rate 17 Blood Pressure 145/80 H Pulse Oximetry 100 Oxygen Delivery Method Room Air BMI result Body Mass Index 21.5 Well-appearing female in no acute distress Lungs clear to auscultation bilaterally; unlabored breathing normal S1-S2 regular rate and rhythm Abdomen is soft nontender nondistended No focal neurologic deficits appreciated No lower extremity edema appreciate Course Course Course Narrative: RME: DOne by JAYDE Agustin. [age] year female presents to ED for lightheadedness, dizziness, chest discomfort, and elevated blood pressure. Patient states her blood pressure hard to control and increasing lisinopril to 40 mg. NIH score is 0. Negative for signs of neuro deficits. EKG labs head CT scan ordered. Patient hypertensive. Medical Decision Making Medical Decision Making MDM Narrative: This is a 59-year-old female presenting primarily for hypertension. She also endorses intermittent lightheadedness, headache and chest tightness. I am concerned for benign hypertension and very mild asthma exacerbation. I am also considering electrolyte abnormality and underlying infection. I do not have any concerns for ACS/angina, PE, CVA/stroke/head bleed - Labs notable for stable H&H, no leukocytosis, normal electrolytes and creatinine, negative 1st troponin - no signs of ischemia on EKG - I did not appreciate head bleed on head CT and the radiologist impression is negative - chest x-ray is negative for pneumo on my interpretation and the radiologist's impression is also negative - 2nd troponin negative, urine clean - no concerning findings on bedside echo and negative for the following; pericardial effusion, enlarged aortic root, enlarged RV, plethoric IVC - patient's headache resolved without treatment. Her lungs are clear so I do not think that she needs any asthma treatment here - Unclear etiology for patient's symptoms however patient's workup was unremarkable; I instructed her follow up with her PCP and gave her return precautions Differential Diagnosis Differential Diagnoses: The differential diagnosis associated with the presentation includes Benign hypertension, electrolyte/metabolic disturbance, asthma, stress, tension headache, migraine No concerns for hypertensive emergency/urgency, ACS, PE, Lab Data 07/11/24 19:28 07/11/24 19:28 Labs: Lab Results 07/11/24 07/11/24 Range/Units 19:28 22:25 WBC 6.8 (4.8-10.8) X10*3/uL RBC 4.46 (4.20-5.50) X10*6/uL Hgb 14.2 (12.0-16.0) g/dl Hct 40.9 (37.0-47.0) % MCV 91.7 (80.0-98.0) fL MCH 31.8 (27.0-33.0) pg MCHC 34.7 (31.0-35.0) g/dl RDW 11.9 (11.0-16.0) % Plt Count 307 (160-400) X10*3/uL MPV 9.0 L (9.4-12.3) fL Immature Gran % (Auto) 0.1 (0.0-0.4) % Neut % (Auto) 39.1 L (45-73) % Lymph % (Auto) 45.9 H (20-40) % [place] % (Auto) 8.9 (2-11) % Eos % (Auto) 5.3 H (0-4) % Baso % (Auto) 0.7 (0-2) % Lymph # (Auto) 3.1 (1.2-4.9) X10*3/uL [place] # (Auto) 0.6 (0.1-1.2) X10*3/uL Eos # (Auto) 0.4 (0.0-0.4) X10*3/uL Baso # (Auto) 0.1 (0.0-0.2) X10*3/uL Abs Immat Gran (auto) 0.01 (0.00-0.03) X10*3/uL Absolute Neuts (auto) 2.6 (2.0-8.3) x10*3/uL Absolute Nucleated RBC 0.000 (0.0-0.012) X10*3/uL Nucleated RBC % (auto) 0.0 (0.0-0.2) /100WBC PT 9.7 L (10.9-12.4) SEC INR 0.8 L (0.9-1.1) APTT 29.2 (26.0-36.8) SEC Sodium 144 (135-145) mmol/L Potassium 3.6 (3.3-5.1) mmol/L Chloride 105 (96-108) mmol/L Carbon Dioxide 28 (22-29) mmol/L Anion Gap 15 (12-20) BUN 12 (9-16) mg/dL Creatinine 0.78 (0.5-1.4) mg/dL Estim Creat Clear Calc 67.8 Estimated GFR > 60 Random Glucose 113 (60-115) mg/dL Calcium 11.3 H (8.4-10.2) mg/dL Total Bilirubin 0.5 (0.0-1.0) mg/dL AST 23 (5-31) U/L ALT 24 (0-31) U/L Alkaline Phosphatase 90 (39-117) U/L Troponin I High Sens < 2.7 < 2.7 (<3.5-17.0) ng/L B-Natriuretic Peptide 16 (<100) pg/mL Total Protein 7.9 (6.5-8.0) g/dL Albumin 4.9 (3.5-5.0) g/dL TSH 3.74 (0.32-4.0) uIU/mL Urine Color Yellow Urine Appearance Clear Urine pH 7.5 (5.0-9.0) Ur Specific [place] <= 1.005 (1.005-1.025) Urine Protein Negative (Neg-Trace) mg/dL Urine Glucose (UA) Negative (Negative) mg/dL Urine Ketones Negative (Negative) mg/dL Urine Blood Negative (Negative) Urine Nitrite Negative (Negative) Ur Leukocyte Esterase Negative (Negative) Influenza Type A (PCR) NEGATIVE (Negative) Influenza Type B (PCR) NEGATIVE (Negative) RSV RNA Qual (PCR) NEGATIVE (Negative) SARS-CoV-2 RNA (RT-PCR) NEGATIVE (Negative) Discharge Plan Discharge Clinical Impression: Hypertension Patient Disposition: Home, Self-Care Additional Instructions: Please follow-up with your primary care physician in the next 24-48 hours If you develop any new or worsening symptoms please return to the emergency department Prescriptions: No Action fluticasone propionate 110 mcg/actuation HFA aerosol inhaler 2 puff inhalation BID Qty: 12 5RF lisinopril 40 mg tablet Prempro 0.3-1.5 mg tablet 1 tab PO DAILY estradiol 0.01 % (0.1 mg/gram) cream 0.5 g vaginal 3XW azelaic acid 15 % gel topical QAM multivitamin Tablet 1 tab PO DAILY Adult Probiotic 3 billion cell capsule 3,000 mmu cells PO DAILY Rx Instructions: administer with a meal cholecalciferol (vitamin D3) 50 mcg (2,000 unit) capsule 50 mcg PO DAILY azelastine 137 mcg (0.1 %) aerosol,spray 2 spray intranasal BID PRN Noritate 1 % cream topical clotrimazole-betamethasone 1-0.05 % cream topical omega 0-kwi-zzx-fish oil [Fish Oil] 60-90-500 mg capsule 1 cap PO DAILY apple cider vinegar 600 mg capsule 600 mg PO DAILY fluticasone propionate 50 mcg/actuation spray,suspension 1 spray intranasal DAILY albuterol sulfate 90 mcg/actuation HFA aerosol inhaler 2 puff PO Q6H PRN (Reason: shortness of breath or wheezing) Qty: 8.5 5RF Interventions: ED Discharge Assessment Last Done: 07/12/24 00:14 Discharge Date/Time: 07/12/24 00:24 Print Language: Bolivian
[2024-07-11 19:36] LABS: MANUAL DIFF FLAG NO
[2024-07-11 19:37] LABS: Basophils Absolute Auto 0.1 X10*3/uL (0.0-0.2); Basophils Percent Auto 0.7 % (0-2); Eosinophils Absolute Auto 0.4 X10*3/uL (0.0-0.4); Eosinophils Percent Auto 5.3 % (0-4); Hematocrit 40.9 % (37.0-47.0); Hemoglobin 14.2 g/dl (12.0-16.0); Imm Gran Abs Auto 0.01 X10*3/uL (0.00-0.03); Imm Gran Pct Auto 0.1 % (0.0-0.4); Lymphocytes Absolute Auto 3.1 X10*3/uL (1.2-4.9); Lymphocytes Percent Auto 45.9 % (20-40); Mean Corpuscular HGB Conc 34.7 g/dl (31.0-35.0); Mean Corpuscular Hemoglobin 31.8 pg (27.0-33.0); Mean Corpuscular Volume 91.7 fL (80.0-98.0); Monocytes Absolute Auto 0.6 X10*3/uL (0.1-1.2); Monocytes Percent Auto 8.9 % (2-11); Neutrophils Absolute Auto 2.6 x10*3/uL (2.0-8.3); Neutrophils Percent Auto 39.1 % (45-73); Platelet Count 307 X10*3/uL (160-400); Red Blood Count 4.46 X10*6/uL (4.20-5.50); Red Cell Distribution Width 11.9 % (11.0-16.0); White Blood Count 6.8 X10*3/uL (4.8-10.8)
[2024-07-11 19:43] LABS: INTERNATIONAL NORM RATIO 0.8 (0.9-1.1); Prothrombin Time 9.7 SEC (10.9-12.4)
[2024-07-11 19:45] LABS: Partial Thromboplastin Time 29.2 SEC (26.0-36.8)
[2024-07-11 19:50] LABS: Alanine Aminotransferase 24 U/L (0-31); Albumin Level 4.9 g/dL (3.5-5.0); Alkaline Phosphatase 90 U/L (39-117); Anion Gap 15 (12-20); Aspartate Amino Transferase 23 U/L (5-31); Bilirubin Total 0.5 mg/dL (0.0-1.0); Blood Urea Nitrogen 12 mg/dL (9-16); Calcium 11.3 mg/dL (8.4-10.2); Carbon Dioxide 28 mmol/L (22-29); Chloride 105 mmol/L (96-108); Creatinine Clr Calc Pharmacy 67.8; Estimated Glomerular Filt Rate > 60; Glucose Random 113 mg/dL (60-115); Potassium 3.6 mmol/L (3.3-5.1); Sodium 144 mmol/L (135-145); Total Protein 7.9 g/dL (6.5-8.0)
[2024-07-11 19:54] VITALS: BP 173/65; PULSE 73; RESP 16; TEMP 36.7; O2SAT 99
[2024-07-11 19:56] LABS: B Type Natriuretic Peptide 16 pg/mL (<100)
[2024-07-11 20:00] LABS: Troponin-I High Sensitivity < 2.7 ng/L (<3.5-17.0)
[2024-07-11 20:14] LABS: Influenza A PCR NEGATIVE (Negative); Influenza B PCR NEGATIVE (Negative); Resp Syncy Virus RNA Qual PCR NEGATIVE (Negative); SARS COV2 PCR INHOUSE NEGATIVE (Negative)
[2024-07-11 21:41] VITALS: BP 150/97; PULSE 67; RESP 16; TEMP 36.6; O2SAT 99
[2024-07-11 22:26] VITALS: BP 168/78; PULSE 68; RESP 15; O2SAT 99
[2024-07-11 22:38] LABS: Appearance Urine Clear; Color Urine Yellow; Glucose Urine UA Negative (Negative); Leukocyte Esterase Urine Negative (Negative); Nitrite Urine Negative (Negative); PH 7.5 (5.0-9.0); Specific Gravity - Urine <= 1.005 (1.005-1.025); Urine Blood Negative (Negative); Urine Ketones Negative (Negative); Urine Protein Negative (Neg-Trace)
[2024-07-11 22:52] LABS: Troponin-I High Sensitivity < 2.7 ng/L (<3.5-17.0)
[2024-07-12 00:05] VITALS: BP 144/88; PULSE 61; RESP 12; TEMP 36.6; O2SAT 99
[2024-07-12 00:14] VITALS: BP 145/80; PULSE 61; RESP 17; TEMP 36.6; O2SAT 100
[2024-07-12 00:40] LABS: TSH reflex Free T4 3.74 uIU/mL (0.32-4.0)
== END 2024-07-12 00:24 | disposition home or self-care (01) ==
PROVIDERS: Physician Assistant; Emergency Provider Student in an Organized Health Care Education/Training Program; PCP Internal Medicine
DX: R42 Dizziness and giddiness (principal); I10 Essential (primary) hypertension; R51.9 Headache, unspecified; R06.02 Shortness of breath; R07.89 Other chest pain; Z79.899 Other long term (current) drug therapy; Z03.818 Encounter for observation for suspected exposure to other biological agents ruled out
CPT/HCPCS: 0241U; 36415; 70450; 71045; 80053; 81003; 83880; 84443; 84484; 85025; 85610; 85730; 93005; 99284

== ENCOUNTER → 2024-07-11 18:48 | Outpatient (BNV) | payer BC, SELFPAY | PROVIDERS: Emergency Provider Student in an Organized Health Care Education/Training Program; PCP Internal Medicine; Visit Provider Internal Medicine | DX: R10.9 Unspecified abdominal pain (principal) | CPT/HCPCS: 93010 ==

== ENCOUNTER 2024-07-13 13:29 | Outpatient (AMB) | payer BC, SELFPAY ==
--- NOTE | 2024-07-13 13:58 | A.OFFVIS_ITS ---
Vital Signs 07/13/24 13:59 Height 5 ft 4 in Weight 123 lb 0.46 oz BMI 21.1 BP 152/70 H Blood Pressure Location Lt brachial Position Sitting Pulse 70 Pulse Source Pulse Oximeter Pulse Oximetry (%) 99 Oxygen Delivery Method Room Air Intake Visit Reasons: asthma Intake Note: pt is here for follow up and states she is feeling not good, dealing with a blood pressure issue. Did have an episode of using emergency inhaler and mixed with bp, she had an ER visit here on Friday. 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 Required: No Allergies amoxicillin Allergy (Unknown, Verified 07/13/24 14:25) stomach upset doxycycline [DOXYCYCLINE] Allergy (Unknown, Verified 07/13/24 14:25) NAUSEA & VOMITING erythromycin base [ERYTHROMYCIN BASE] Allergy (Unknown, Verified 07/13/24 14:) NAUSEA & VOMITING prednisone Adverse Reaction (Unknown, Verified 07/13/24 14:) emotional but liquid is ok Medication List - Last Reconciled 07/13/24 by Carly Cordero MD albuterol sulfate 90 mcg/actuation 2 puffs PO Q6H PRN apple cider vinegar 600 mg PO DAILY azelaic acid 15% topical QAM azelastine 2 sprays intranasal BID PRN cholecalciferol (vitamin D3) 50 mcg PO DAILY clotrimazole-betamethasone 1-0.05 % appl topical conj estrog-medroxyprogest alexandra 0.3-1.5 mg 1 tab PO DAILY estradiol 0.01%(0.1mg/gram) 0.5 grams vaginal 3XW fluticasone propionate 110 mcg/actuation 2 puffs inhalation BID fluticasone propionate 50 mcg/actuation 1 spray intranasal DAILY lactobacillus combination no.8 (Adult Probiotic) 3,000 mmu cells PO DAILY [lisinopril ] metronidazole 1% (Noritate) appl topical multivitamin 1 tab PO DAILY omega 5-lnw-zyf-fish oil 60-90-500 mg (Fish Oil) 1 cap PO DAILY Do you need a note to return to daycare/school/sports/work: No HPI HPI asthma: Details: 59 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 Luckily during the past whole year she has been relatively stable without any acute exacerbations. In the last 6 months she had to use short course of prednisone only once. She denies having had any respiratory infection. Today she comes for her 6 months follow-up. But more recently in the last few weeks she is having issues with headache, hypertension, and feeling dizzy. She had a bout of high blood pressure and was started on lisinopril 20 mg a day which was later changed to 40 mg a day. Then a few days ago she had a spell of dizziness and had to go to the emergency room. Today she is coming here for her routine pulmonary follow-up isn't. She retired from [employer] , last year now she takes care of her parents who are quite old and, she does have lot of stress. [facility] Medical History Cough Chest discomfort Asthma Allergic rhinitis Social History Patient Tobacco Use Status: Never used Tobacco Review of Systems Const All systems reviewed & are unremarkable except as noted in HPI and below Eyes Reports no additional complaints ENT Reports no additional complaints and Reports Normal hearing present Card Reports chest pain (S more like a burning pain in the mid sternum, not related to any physical ), Denies irregular heart rhythm and Denies leg edema Resp Reports as per HPI GI Reports heartburn (Controlled with Prilosec) Reports no additional complaints Skin/Breast Reports system reviewed and no additional complaints, except as documented Neuro Reports no additional complaints and Reports Normal hearing present Psych Reports no additional complaints Physical Exam Vital Signs: Last Vital Signs Pulse 70 07/13/24 13:59 BP 152/70 H 07/13/24 13:59 Pulse Ox 99 07/13/24 13:59 Oxygen Delivery Method Room Air 07/13/24 13:59 BMI result Body Mass Index 21.1 Const General: cooperative, healthy appearing, comfortable, no acute distress, well developed and alert Orientation/consciousness: patient oriented x3 Limitations: no limitations HEENT Head: Yes normal to inspection, Yes normocephalic and Yes atraumatic Ears: hearing grossly normal bilaterally and external ears normal General nose exam: No nasal polyps present and Other nasal findings present (She has marked deflection of the nasal septum to the right side as usual, ) Face and sinus: Yes sinuses nontender Mouth: oropharynx normal Throat: Yes posterior oropharynx normal Eyes General: appearance normal, both eyes and all related structures Eyelids: Yes eyelids normal Sclerae: sclerae normal EOM: EOMs intact bilaterally Neck Neck: Yes normal visual inspection and Yes no lymphadenopathy Thyroid: Thyroid normal Lymphatic: no lymphadenopathy noted Chest Chest palpation & inspection: normal inspection of the chest, normal palpation of entire chest wall and no tenderness Resp Other: PERCUSSION. NOTE IS RESONANT BOTH LUNGS ARE CLEAR TO AUSCULTATION. NO WHEEZES RHONCHI OR CREPITATIONS ARE HEARD TODAY. Cardio Jugular venous distension: no JVD Palpation: normal PMI Rate: regular rate Rhythm: regular rhythm Heart sounds: no gallops and no murmurs Peripheral pulses: Peripheral pulses 2+ throughout GI Palpation (GI): Soft to palpation, nontender, No hepatosplenomegaly present and no masses Auscultation: normal bowel sounds Back/Spine/Pelvis Thoracic/Lumbar Spine: thoracic and lumbar spine normal to inspection Skin Other: warm, dry General skin exam: no rashes or lesions noted Neuro General: patient oriented x3 Cranial nerves: Yes Normal hearing present Cognition (Neuro): normal cognition Gait exam (Neuro): Normal gait present Extrem General: Yes normal to inspection, Yes capillary refill normal, Yes no clubbing, cyanosis or edema and Yes no pedal edema Psych Appearance: grossly normal and well kempt Speech and movement: Normal speech and movement present and Clear speech present Assessment & Plan Assessment & Plan (1) Asthma: Comment: SHE HAS CHRONIC BRONCHIAL ASTHMA, MOSTLY ALLERGIC, AND SOMETIMES SECONDARY TO VIRAL ILLNESS. AT PRESENT IT IS WELL CONTROLLED. Code(s): J45.909 - Unspecified asthma, uncomplicated Category: Medical Plan: Continue using fluticasone propionate 110 mcg 2 puffs b.i.d.. Albuterol HFA 2 puffs Q 6 hours p.r.n. In case of an acute exacerbation she can take prednisone 20 mg b.i.d. for 5 days ( keeps supply for 1 short course on hand ) (2) Allergic rhinitis: Comment: SHE HAS CHRONIC ALLERGIC RHINITIS, FLARES UP DUE TO CHANGE IN WEATHER. CURRENTLY VERY STABLE. Code(s): J30.9 - Allergic rhinitis, unspecified Category: Medical Plan: Flonase-52 inhalations each nostril daily Zyrtec 10 mg half tablet once a day p.r.n. (3) Hypertension: Comment: Just recently in the past few weeks she has had stress related headache, high blood pressure, and started on relatively high dose of lisinopril, Seen in the emergency room for dizziness a few days ago. She is wondering if her current symptoms are due to starting on this new antihypertensive agent, Lisinopril . Code(s): I10 - Essential (primary) hypertension Category: Medical Plan: I had a good talk with her. I advised her to see the primary care physician, and let him/her adjust the dose of antihypertensive agents. I told her that the current symptoms are not due to any change in the respiratory status. She can discuss with PCP and might consider lowering the dose of lisinopril and adding another agent such as amlodipine . Because she has allergic rhinitis, bronchial asthma and, frequent bouts of coug h, I think lisinopril could be changed to an ARB agent such as losartan. Coding Level of Care Code Est Pt Level 3 (19265) Diagnoses Asthma J45.909 Allergic rhinitis J30.9 Hypertension I10
[2024-07-13 13:59] VITALS: BP 152/70; PULSE 70; O2SAT 99; BMI 21.1
== END 2024-07-13 14:27 | disposition home or self-care (01) ==
PROVIDERS: PCP Internal Medicine; Visit Provider Internal Medicine
DX: J45.909 Unspecified asthma, uncomplicated (principal); J30.9 Allergic rhinitis, unspecified; I10 Essential (primary) hypertension
CPT/HCPCS: 99213

== ENCOUNTER → 2024-07-13 13:29 | Outpatient (BNVA) | payer BC, SELFPAY | PROVIDERS: PCP Internal Medicine; Visit Provider Internal Medicine ==

== ENCOUNTER 2025-01-18 10:48 | Outpatient (AMB) | payer BC, SELFPAY ==
[2025-01-18 11:13] VITALS: BP 142/92; PULSE 66; O2SAT 99; BMI 20.8
--- NOTE | 2025-01-18 11:13 | MHC.OFFVIS ---
Vital Signs 01/18/25 11:13 Height 5 ft 4 in Weight 121 lb 4.068 oz BMI 20.8 BP 142/92 H Blood Pressure Location Lt brachial Position Sitting Pulse 66 Pulse Source Pulse Oximeter Pulse Oximetry (%) 99 Oxygen Delivery Method Room Air Intake Visit Reasons: Asthma Intake Note: pt is here for follow up and states she is okay today Hybrid Technologist Required: No Allergies amoxicillin Allergy (Unknown, Verified 01/18/25 11:16) stomach upset doxycycline [DOXYCYCLINE] Allergy (Unknown, Verified 01/18/25 11:16) NAUSEA & VOMITING erythromycin base [ERYTHROMYCIN BASE] Allergy (Unknown, Verified 01/18/25 11:16) NAUSEA & VOMITING prednisone Adverse Reaction (Unknown, Verified 01/18/25 11:16) emotional but liquid is ok Medication List - Last Reconciled 01/18/25 by Carly Cordero MD albuterol sulfate 90 mcg/actuation 2 puffs PO Q6H PRN apple cider vinegar 600 mg PO DAILY azelaic acid 15% topical QAM azelastine 2 sprays intranasal BID PRN cholecalciferol (vitamin D3) 50 mcg PO DAILY clotrimazole-betamethasone 1-0.05 % appl topical estradiol 0.01%(0.1mg/gram) 0.5 grams vaginal 3XW fluticasone propionate 50 mcg/actuation 1 spray intranasal DAILY PRN fluticasone propionate 110 mcg/actuation 2 puffs inhalation BID lactobacillus combination no.8 (Adult Probiotic) 3,000 mmu cells PO DAILY losartan 50 mg PO DAILY metronidazole 1% (Noritate) appl topical multivitamin 1 tab PO DAILY omega 7-swz-fzy-fish oil 60-90-500 mg (Fish Oil) 1 cap PO DAILY Do you need a note to return to daycare/school/sports/work: No HPI HPI Asthma: Details: 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 SHE SAY IS THIS IS LESS STRESSFUL AND. SHE IS HAPPY TO DO THAT WORK PULMONARY SOTRO HAS REMAINED STABLE IN THE LAST 2 MONTHS. SHE DOES HAVE MILD INTERMITTENT COUGH. AND HAS INTERMITTENT NASAL CONGESTION, BUT HAS HAD NO INFECTION. SHE DENIES ANY SHORTNESS OF BREATH ON ROUTINE DAY-TO-DAY [facility] Medical History Cough Chest discomfort Asthma Allergic rhinitis Social History Patient Tobacco Use Status: Never used Tobacco Review of Systems Const All systems reviewed & are unremarkable except as noted in HPI and below Eyes Reports no additional complaints ENT Reports no additional complaints and Reports Normal hearing present Card Denies irregular heart rhythm and Denies leg edema Resp Reports as per HPI GI Reports heartburn (Controlled with Prilosec) Reports no additional complaints Skin/Breast Reports system reviewed and no additional complaints, except as documented Neuro Reports no additional complaints and Reports Normal hearing present Psych Reports no additional complaints Physical Exam Vital Signs: Last Vital Signs Pulse 66 01/18/25 11:13 BP 142/92 H 01/18/25 11:13 Pulse Ox 99 01/18/25 11:13 Oxygen Delivery Method Room Air 01/18/25 11:13 BMI result Body Mass Index 20.8 Looks sick with reddish face and congested nose. Const General: cooperative, comfortable, no acute distress, well developed and alert Orientation/consciousness: patient oriented x3 Limitations: no limitations HEENT Head: Yes normocephalic and Yes atraumatic Ears: hearing grossly normal bilaterally and external ears normal General nose exam: No nasal polyps present and Other nasal findings present (She has marked deflection of the nasal septum to the right side as usual,) Face and sinus: No sinuses nontender (Cheeks are red and on but sensitive to touch) Mouth: oropharynx abnormals Throat: Yes posterior oropharynx normal Eyes General: appearance normal, both eyes and all related structures Eyelids: Yes eyelids normal Sclerae: sclerae normal EOM: EOMs intact bilaterally Neck Neck: Yes normal visual inspection and Yes no lymphadenopathy Thyroid: Thyroid normal Lymphatic: no lymphadenopathy noted Chest Chest palpation & inspection: normal inspection of the chest, normal palpation of entire chest wall and no tenderness Resp Other: PERCUSSION. NOTE IS RESONANT BOTH LUNGS ARE CLEAR TO AUSCULTATION. NO WHEEZES RHONCHI OR CREPITATIONS ARE HEARD TODAY. Cardio Jugular venous distension: no JVD Palpation: normal PMI Rate: regular rate Rhythm: regular rhythm Heart sounds: no gallops and no murmurs Peripheral pulses: Peripheral pulses 2+ throughout GI Palpation (GI): Soft to palpation, nontender, No hepatosplenomegaly present and no masses Auscultation: normal bowel sounds Back/Spine/Pelvis Thoracic/Lumbar Spine: thoracic and lumbar spine normal to inspection Skin Other: warm, dry General skin exam: no rashes or lesions noted Neuro General: patient oriented x3 Cranial nerves: Yes Normal hearing present Cognition (Neuro): normal cognition Gait exam (Neuro): Normal gait present Extrem General: Yes normal to inspection, Yes capillary refill normal, Yes no clubbing, cyanosis or edema and Yes no pedal edema Psych Appearance: grossly normal and well kempt Speech and movement: Normal speech and movement present and Clear speech present Assessment & Plan Assessment & Plan (1) Asthma: Comment: SHE HAS CHRONIC BRONCHIAL ASTHMA, MOSTLY ALLERGIC, AND SOMETIMES SECONDARY TO VIRAL ILLNESS. AT PRESENT IT IS WELL CONTROLLED, AND EVEN THOUGH SHE DOES HAVE UPPER RESPIRATORY INFECTION, SHE DOES NOT HAVE ACTIVE WHEEZES Code(s): J45.909 - Unspecified asthma, uncomplicated Category: Medical Plan: CONTINUE TO USE FLOVENT-1102 PUFFS B.I.D. AND ALBUTEROL HFA 2 PUFFS Q.6 HOURS PRN (2) Allergic rhinitis: Comment: SHE HAS CHRONIC ALLERGIC RHINITIS, FLARES UP DUE TO CHANGE IN WEATHER. CURRENTLY SHE HAS CONGESTION OF THE NOSE , MAINLY BECAUSE OF ACUTE VIRAL ILLNESS. Code(s): J30.9 - Allergic rhinitis, unspecified Category: Medical Plan: FLONASE 2 SPRAY EACH NOSTRIL DAILY AZELASTIN 2 SPRAY INTRANASAL B.I.D. P.R.N. FOR ANY ACUTE SYMPTOMS Coding Level of Care Code Est Pt Level 3 (57555) Diagnoses Asthma J45.909 Allergic rhinitis J30.9
--- OUTSIDE RECORDS SUMMARY | 2025-01-18 12:49 | XMS_ITS | Continuity of Care Document ---
Author Organization [facility] Address [address] [place] [address] [address] [place] [address] Phone Care Team Providers Care Bus Driver/Monitor Name Role Phone Edwin Mcbride MD, FACS, RVT Unavailable Unavailable Procedures Procedure Date Duplex Scan-extrem Veins; Comp Office/Oupt E&M New Pt 30 Mins Advance Directives Directive Yes / No Effective Date File Name No Information Encounters Encounter Description Practice Location Reason(s) For Visit Diagnoses Date Provider Providers Copied on Encounter [facility], [address] [place] [address] Dr [address], [place], [id number], [place] tel:[phone] [place] No Information 3 Hitesh Rosenthal. [address] [facility] [address], [place], [address], [place]. tel:[phone] Referring Provider: Leah de leon MD, [address] [place], [address]. tel:[phone] [facility], [address] [place] [address] [address], [place], [id number], [place] tel:[phone] [facility] Pain in right legPain in left leg 3 Hitesh Rosenthal. [address] [facility] [address], [place], [address], [place]. tel:[phone] Referring Provider: Leah de leon MD, [address] [place], [address]. tel:[phone] Office/Oupt E&M New Pt 30 Mins [facility], [address] [facility] [address], [place], [id number], [place] tel:[phone] [facility] - [place] Pain in right lower legPain in left lower legCramp and spasmVenous insufficiency (chronic) (peripheral)Pr uritus, unspecified 3 Hitesh REBOLLEDO FACS RVT RPVI Edwin Rosenthal. [address] [facility], [address], [place], [address], [place]. tel:[phone] Referring Provider: Leah de leon MD, [address] [place] [address], [address]. tel:[phone] Family History Family Member Type Diagnosis Age At Onset No Information Payers Payer name Insurance type Covered libertarian ID Belle bill(s) [facility] [id number] Social History Type Description Quantity Date Captured Comments Sex Female Smoking Status No Information Chief Complaint And Reason For Visit No Information Reason For Referral Reason For Referral No Information Plan Of Treatment Date Type Action Status Goal Diet education completed Referral Ordered: Weight management: Referral to physician timeframe: 3 Months (related to Body mass index (BMI) 20.0-20.9, adult) ordered History Of Present Illness Encounter Date Complaint History Of Prese nt Illness No Information Functional Status Date Functional Assessmen t No Information Instructions Date Instruction Additional Infor mation Diet education Related to Body mass index (BMI) 20.0-20.9, adult Giving Encouragement to exercise Related to Body mass index (BMI) 20.0-20.9, adult Lifestyle education Related to B veena mass index (BMI) 20.0-20.9, adult Patient education booklet given Related to Pain in right lower leg Compression stocking usage as conservative measure Related to Pain in right lower leg Assessments Type Assessment Date No Information Patient Care Teams Name Effective Dates (start - stop) Status Members No Information
--- OUTSIDE RECORDS SUMMARY | 2025-01-18 12:49 | XMS_ITS | Encounter Summary ---
Author Organization [facility] Address [address] [place] [address] Care Team Providers Care Television Anchor Name Role Phone Leah Murguia MD Primary Care Prov ider Reason for Referral * Imaging (Routine) - Authorized Specialty Diagnoses / Procedures Referred By Carlottaac t Referred To Contact Radiology Diagnoses Encounter for screening mammogram for breast cancer Procedures MG Mammo Digital Screening w Yesica bilat [facility], Self Referral [facility] Referral ID Status Reason Start Date Expiration Date V isits Requested Visits Authorized [id number] Authorized 07/15/2024 07/15/2025 1 1 Reason for Visit * Imaging (Routine) - Authorized Specialty Diagnoses / Procedures Referred By Contac t Referred To Contact Radiology Diagnoses Encounter for screening mammogram for breast cancer Procedures MG Mammo Digital Screening w Yesica bilat [facility], Self Referral [facility] Referral ID Status Reason Start Date Expiration Date V isits Requested Visits Authorized [id number] Authorized 07/15/2024 07/15/2025 1 1 Encounter Details Date Type Department Care Team (Latest Contact Info) Description 01/17/2025 10:45 AM EDT - 01/17/2025 11:59 PM EDT Hospital En[facility] [address] [address] Encounter for screening mammogram for breast cancer Discharge Disposition: Home or Self Care Social History Tobacco Use Types Packs/Day Years Used Date Smoking Tobacco: Never Smokeless Tobacco: Never Alcohol Use Standard Drinks/Week Comments Not Currently 0 (1 standard drink = 0.6 oz pur e alcohol) Comments No Sex and Gender Information Value Date Recorded Sex Assigned at Not on file Legal Sex Female 9:19 PM EST Gender Identity Not on file Sexual Orientation Not on file documented as of this encounter Last Filed Vital Signs Vital Sign Reading Time Taken Comments Blood Pressure - - Pulse - - Temperature - - Respiratory Rate - - Oxygen Saturation - - Inhaled Oxygen Concentration - - Weight 52.6 kg (116 lb) 01/17/2025 10:51 AM EDT Height 162.6 cm (5' 4 ) 01/17/2025 10:51 AM EDT Body Mass Index 19.91 01/17/2025 10:51 AM EDT documented in this encounter Medications at Time of Discharge APPLE CIDER VINEGAR ORAL Take by mouth. azelaic acid (FINACEA) 15 % gel 1 (one) time each day. 03/22/2023 azelastine (ASTELIN) 137 mcg (0.1 %) nasal spray Administer 2 sprays into each nostril 2 (two) times a day. DIRECTED 01/04/2020 cetirizine (ZyrTEC) 10 mg tablet Take 1 tablet (10 mg total) by mouth 1 (one) time each day. chlorphen-pseudoe ph-ibuprofen 2-30-200 mg tablet Take by mouth. cholecalciferol (VITAMIN D-3) 25 mcg (1,000 unit) capsule Take by mouth. ELDERBERRY FRUIT ORAL Take by mouth. estradioL (ESTRACE) 0.01 % (0.1 mg/gram) vaginal cream 0.5 gram vaginally every M,W,F 42.5 g 3 11/29/2024 fluticasone HFA (FLOVENT HFA) 110 mcg/actuation inhaler Inhale 2 puffs by mouth 2 (two) times a day. Am and pm Lactobacillus acidophilus (PROBIOTIC ORAL) Take 1 capsule by mouth 1 (one) time each day. losartan (COZAAR) 50 mg tablet TAKE 1 TABLET BY MOUTH EVERY DAY 90 tablet 1 01/04/2025 multivitamin (MULTIPLE VITAMINS ORAL) Take 1 tablet by mouth 1 (one) time each day. naproxen sodium 220 mg capsule Take by mouth. omega-3 acid ethyl esters (LOVAZA) 1 gram capsule Take by mouth. OMEPRAZOLE ORAL Take 20 mg by mouth 1 (one) time each day. vitamin E acetate (VITAMIN E ORAL) Take by mouth. documented as of this encounter Discharge Disposition Disposition Code Departure Means Destination Home or Self Care documented in this encounter Plan of Treatment Upcoming Encounters Date Type Department Care Team (Late st Contact Info) Description 01/19/2025 9:15 AM EDT Appointment Radiology Department [address] [address] 07/05/2025 3:45 PM EDT Office Visit Adult Medicine - [place] [address] [place] [address] Leah Murguia MD [address] [place] [address] 01/18/2026 1:00 PM EDT [facility]ointment [facility] [address] [address] documented as of this encounter Procedures Procedure Name Priority Date/Time Associated Diagnosis Comments MG MAMMO DIGITAL SCREENING W YESICA BILAT Routine 01/17/2025 11:02 AM EDT Encounter for screening mammogram for breast cancer documented in this encounter Results * MG Mammo Digital Screening w Yesica bilat (01/17/2025 11:02 AM EDT) Anatomical Region Laterality Modality Breast Bilateral Mammography 01/17/2025 5:18 PM EDT Impressions 01/17/2025 5:27 PM EDT No mammographic evidence of malignancy. ?? No suspicious interval change. A negative mammogram in the presence of a clinically suspicious palpable abnormality does not preclude the possibility of malignancy or alter the indications for biopsy. ASSESSMENT: ?? BI-RADS 1: NEGATIVE RECOMMENDATION(S): 1: Routine screening mammogram BILATERAL in 1 year. [facility]: [facility] [address] [place], [address] -------- FINAL REPORT -------- Dictated By: Favian Fuentes Dictated Date: 01/17/2025 17:18 ET Assigned Physician: Favian Fuentes Reviewed and Electronically Signed By: Favian Fuentes Signed Date: 01/17/2025 17:27 ET Workstation ID: [id number] Transcribed By: Self Edit Transcribed Date: 01/17/2025 17:18 ET Narrative 01/17/2025 5:27 PM EDT EXAM: ??SCREENING MAMMOGRAPHY, BILATERAL HISTORY: ??SCREENING. ??Family history of breast cancer; diagnosed at age 60, 2nd cousin premenopausal COMPARISON: ??12/24/23, 12/16/22, 12/13/21, 12/11/20 TECHNIQUE: Synthesized CC and MLO projections of each breast. ??Tomosynthesis of each breast in the CC and MLO projections. ADDITIONAL IMAGING: Craniocaudal view of the right breast exaggerated toward the axilla using Tomosynthesis. Computer-aided detection was employed with the iCAD ??ProFound AI 3-D. TISSUE DENSITY: The breasts are heterogeneously dense, which may obscure small masses. (BI-RADS category C) FINDINGS: RIGHT BREAST: No suspicious mass. No suspicious calcification. No distortion. ?? No additional suspicious right breast findings LEFT BREAST: No suspicious mass. No suspicious calcification. No distortion. ?? No additional suspicious left breast findings Procedure Note Favian Fuentes MD - 01/17/2025 EXAM: SCREENING MAMMOGRAPHY, BILATERAL HISTORY: SCREENING. Family history of breast cancer; diagnosed at age60, 2nd cousin premenopausal COMPARISON: 12/24/23, 12/16/22, 12/13/21, 12/11/20 TECHNIQUE: Synthesized CC and MLO projections of each breast.Tomosynthesis of each breast in the CC and MLO projections. ADDITIONAL IMAGING: Craniocaudal view of the right breast exaggeratedtoward the axilla using Tomosynthesis. Computer-aided detection was employed with the iCAD ProFound AI 3-D. TISSUE DENSITY: The breasts are heterogeneously dense, which may obscuresmall masses. (BI-RADS category C) FINDINGS: RIGHT BREAST: No suspicious mass. No suspicious calcification. No distortion. Noadditional suspicious right breast findings LEFT BREAST: No suspicious mass. No suspicious calcification. No distortion. Noadditional suspicious left breast findings IMPRESSION: No mammographic evidence of malignancy. No suspicious interval change. A negative mammogram in the presence of a clinically suspicious palpableabnormality does not preclude the possibility of malignancy or alter theindications for biopsy. ASSESSMENT: BI-RADS 1: NEGATIVE RECOMMENDATION(S): 1: Routine screening mammogram BILATERAL in 1 year. [facility] [address], [address] -------- FINAL REPORT -------- Dictated By: Favian Fuentes Dictated Date: 01/17/2025 17:18 ET Assigned Physician: Favian Fuentes Reviewed and Electronically Signed By: Favian Fuentes Signed Date: 01/17/2025 17:27 ET Workstation ID: [id number] Transcribed By: Self Edit Transcribed Date: 01/17/2025 17:18 ET us Self Referral [facility] IMG BI PROCEDURES Final Resul t documented in this encounter Visit Diagnoses Diagnosis Encounter for screening mammogram for breast cancer Encounter for screening mammogram for breast cancer documented in this encounter Additional Health Concerns Assessment Noted Time PHQ-9 Depression Total Score: 0 12/29/19 25 4:03 PM EDT documented as of this encounter Care Teams Television Anchor Relationship Specialty Start Date End Date Leah Murguia MD [address] [place] [address] PCP - General Internal Medicine 11/22/11 documented as of this encounter
--- OUTSIDE RECORDS SUMMARY | 2025-01-18 12:49 | XMS_ITS | Encounter Summary ---
Author Organization [facility] Address [address] [place] [address] Care Team Providers Care Moccasin Sewer Name Role Phone Leah Murguia MD Primary Care Prov ider Reason for Visit * Reason Onset Date Comments Sinusitis 11/03/2024 Encounter Details Date Type Department Care Team (Late st Contact Info) Description 11/03/2024 Nurse Triage Adult Medicine - [place] [address] [place] [address] Leah Murguia MD [address] [place] [address] Sinusitis Social History Tobacco Use Types Packs/Day Years [...] on file documented as of this encounter Progress Notes * Syeda Arias LPN - 11/03/2024 11:03 AM EST Answer Assessment - Initial Assessment Questions 1. LOCATION: Where does it hurt? Around eyes, nose, sore throar 2. ONSET: When did the sinus pain start? (e.g., hours, days) Week 3. SEVERITY: How bad is the pain? (Scale 1-10; mild, moderate or severe) - MILD (1-3): Doesn't interfere with normal activities. - MODERATE (4-7): Interferes with normal activities (e.g., work or school) or awakens from sleep. - SEVERE (8-10): Excruciating pain and patient unable to do any normal activities. Moderate 4. RECURRENT SYMPTOM: Have you ever had sinus problems before? If Yes, ask: When was the last time? and What happened that time? Yes 5. NASAL CONGESTION: Is the nose blocked? If Yes, ask: Can you open it or must you breathe through your mouth? No 6. NASAL DISCHARGE: Do you have discharge from your nose? If so ask, What color? green 7. FEVER: Do you have a fever? If Yes, ask: What is it, how was it measured, and when did it start? No 8. OTHER SYMPTOMS: Do you have any other symptoms? (e.g., sore throat, cough, earache, difficultybreathing) Yes 9. : Is there any chance you are ? When was your last menstrual period? No Protocols used: Sinus Pain or [id number] * Ingrid Solano - 11/03/2024 10:46 AM EST Patient call requires triage: Symptoms patient is presenting: sinus infection, discomfort How long has patient had these symptoms?: few days For ALL patients calling to schedule any appointment (routine, sick visit, follow up, consult, etc.) in the outpatient setting please ask the following questions: Do you have fever of higher than 101, sore throat with difficulty swallowing or severe shortness ofbreath? no If YES to any of these above symptoms, send a message to triage and do not book. Red dot. If no, an audio or video visit should be booked. Have you had close contact with someone with Coronavirus in the last 14 days? no Have you traveled abroad? no Have you traveled recently to another state outside of [place], [place], [place], [place], [place], [place], [place]? no o If yes, did you quarantine for 14 days or have a negative covid test? no If yes to any of the above, patient is not to be scheduled in office until after 14 day quarantine or negative covid test. If pain or injury related was it due to an accident at work or from a motor vehicle accident? If yes, date of accident/Injury: No If yes, gather 3rd republican insurance information Third Republican Information: not applicable PCP: Leah Murguia MD Payor: RIAZ Catherine [place] / Plan: [facility] HMO / Product Type: *No Product type* / documented in this encounter Plan of Treatment Upcoming Encounters Date Type Department Care Team (Late st Contact Info) Description 01/19/2025 9:15 AM EDT Appointment Radiology Department - [address] [address] 07/05/2025 3:45 PM EDT Office Visit Adult Medicine - [place] [address] [place] [address] Leah Murguia MD [address] [place] [address] 01/18/2026 1:00 PM EDT [facility]ointment [facility] [address] [phone] documented as of this encounter Visit Diagnoses Not on filedocumented in this encounter Additional Health Concerns Infection Onset Date Last Indicated Resolved Time Respiratory Rule-Out 11/08/2024 11/08/2024 025 6:18 PM EST COVID-19 Rule-Out 11/08/2024 11/08/2024 11/09/2024 6:18 PM EST documented as of this encounter Care Teams Moccasin Sewer Relationship Specialty Start Date End Date Leah Murguia MD [address] [place] [address] PCP - General Internal Medicine 11/22/11 documented as of this encounter
--- OUTSIDE RECORDS SUMMARY | 2025-01-18 12:49 | XMS_ITS | Clinical Summary ---
Author Organization 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 Active ELDERBERRY FRUIT ORAL Take by mouth. Active multivitamin (MULTIPLE VITAMINS ORAL) Take 1 tablet by mouth 1 (one) time each day. Active OMEPRAZOLE ORAL Take 20 mg by mouth 1 (one) time each day. Active Lactobacillus acidophilus (PROBIOTIC ORAL) Take 1 capsule by mouth 1 (one) time each day. Active vitamin E acetate (VITAMIN E ORAL) Take by mouth. Active azelaic acid (FINACEA) 15 % gel 1 (one) time each day. 03/22/20 23 Active azelastine (ASTELIN) 137 mcg (0.1 %) nasal spray Administer 2 sprays into each nostril 2 (two) times a day. DIRECTED 01/04/20 20 Active cetirizine (ZyrTEC) 10 mg tablet Take 1 tablet (10 mg total) by mouth 1 (one) time each day. Active chlorphen-pseu doeph-ibuprofe n 2-30-200 mg tablet Take by mouth. Active cholecalcifero l (VITAMIN D-3) 25 mcg (1,000 unit) capsule Take by mouth. Active fluticasone HFA (FLOVENT HFA) 110 mcg/actuation inhaler Inhale 2 puffs by mouth 2 (two) times a day. Am and pm Active naproxen sodium 220 mg capsule Take by mouth. Active omega-3 acid ethyl esters (LOVAZA) 1 gram capsule Take by mouth. Active estradioL (ESTRACE) 0.01 % (0.1 mg/gram) vaginal cream 0.5 gram vaginally every M,W,F 42.5 g 3 11/30/19 25 Active losartan (COZAAR) 50 mg tablet TAKE 1 TABLET BY MOUTH EVERY DAY 90 tablet 1 01/05/20 25 Active metroNIDAZOLE (Noritate) 1 % cream Apply topically 2 (two) times a day. 025 Discontinued( erapy completed) losartan (COZAAR) 50 mg tablet Take 1 tablet (50 mg total) by mouth 1 (one) time each day. 07/23/20 24 025 Discontinued ondansetron (ZOFRAN) 4 mg tablet Take 1 tablet (4 mg total) by mouth every 8 (eight) hours if needed for nausea or vomiting for up to 7 days. 20 tablet 12/08/19 25 025 Discontinued Active Problems Problem Noted Date Diagnosed Date LLQ pain 12/20/2024 Assessment & Plan (12/20/2024 3:56 PM EDT): I explained there is nothing obvious on exam. Could possibly have some hard stool in colon, but pain is distal to this area. I do not feel an ovarian cyst, but will order an US to confirm. Hemorrhoids 10/12/2024 Hypertension 07/12/2024 Vulvar itching 01/02/2024 Overview (07/12/2024): Last Assessment & Plan: Could be cutaneous candidiasis. Will treat with topical nystatin and send yeast culture. Assessment & Plan (08/31/2024 8:54 PM EST): Likely mild contact dermatitis. Continue skin barrier and see if sx improve. COVID-19 virus infection 09/13/2022 Chronic fatigue syndrome 03/26/2022 Overview (07/12/2024): Positive Albert-Henderson Menopausal vasomotor syndrome 09/04/2021 Overview (07/12/2024): Last Assessment & Plan: I counseled Nyla that it would be best to stop the hormones if not needed as she has had another episode of bleeding. It is not clear if the bleeding was related to stress from COVID infection. Would monitor for now and if no further bleeding, no need to eval. She agrees to let me know if she does have bleeding so it can be evaluated Assessment & Plan (08/31/2024 8:55 PM EST): Not significant. Better to avoid medications given h/o PMB and HTN. She agreed. Vulvar irritation 11/02/2019 Overview (07/12/2024): Last Assessment & Plan: Most likely contact irritation from recent swimming and travel. I encouraged her to soak and seal with coconut oil until improved. Vaginal burning 10/12/2019 Overview (07/12/2024): Last Assessment & Plan: I reviewed with Nyla there is no evidence of infection based on her previous evaluation and exam today. I instead explained likely related to menopausal atrophy. Vaginal atrophy 10/12/2019 Overview (07/12/2024): Last Assessment & Plan: Well controlled. Continue MWF estrace. Assessment & Plan (08/31/2024 8:55 PM EST): Well controlled. Continue MWF estrace. Vulvar atrophy 10/12/2019 Overview (07/12/2024): Last Assessment & Plan: Well controlled. Continue MWF Estrace cream. Skin lesion 06/21/2015 Chronic sinusitis 06/17/2014 Resolved Problems Problem Noted Date Diagnosed Date Resolved Date Elevated BP without diagnosis of hypertension 12/25/19 24 10/12/2024 Overview (07/12/2024): Last Assessment & Plan: Referred to pcp Cyst of right ovary 10/01/2022 08/31/20 Overview (07/12/2024): Decreased in size in 12/2022. CA 125 normal. No need to continue to follow. Last Assessment & Plan: CA 125 pending, US to be scheduled by patient in 3 months. Will discuss results when available. 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 12/20/2024 Encounters Date Type Department Care Team Description 01/17/2025 10:45 AM EDT - 01/17/2025 11:59 PM EDT [facility] [address] [phone] Encounter for screening mammogram for breast cancer Discharge Disposition: Home or Self Care 12/28/2024 4:00 PM EDT Office Visit Adult Medicine [address] [phone] Leah Hein MD Routine general medical examination at a health care facility (Primary Dx); Contact dermatitis, unspecified contact dermatitis type, unspecified trigger; Acute sore throat 12/20/2024 3:30 PM EDT Office Visit Obstetrics and Gynecology - [address] [phone] Jannie Pichardo MD LLQ pain (Primary Dx); Vulvar lesion 12/17/2024 Telephone Obstetrics and Gynecology - [address] [phone] Jannie Pichardo MD Referral 12/09/2024 7:34 AM EDT - 12/09/2024 11:59 PM EDT Hospital Encounter Radiology Department - [address] [phone] Epigastric pain Discharge Disposition: Home or Self Care 12/09/2024 Telephone Adult Medicine [address] [phone] Leah Hein MD Results (Returning call) 12/07/2024 11:15 AM EDT Office Visit [address] [phone] Linda Quarles PA Epigastric pain (Primary Dx); Primary hypertension 12/06/2024 Nurse Triage [address] [phone] Leah Hein MD Abdominal Pain 11/29/2024 11:15 AM EST Office Visit Obstetrics and Gynecology [address] [phone] Iris Reyes CNM Encounter for annual routine gynecological examination (Primary Dx); Family history of breast cancer; Vulvar atrophy; Menopause 11/08/2024 2:30 PM EST Office Visit [address] [phone] Shivam Champion PA Viral upper respiratory tract infection (Primary Dx) 11/03/2024 Nurse Triage [address] [phone] Leah Hein MD Sinusitis 10/29/[address] [phone] Leah Hein MD Lab test (Before PE 12/28/2024) from Last 3 Months Immunizations Name Administration Dates Next Due COVID-19 (Pfizer/Comirnaty) 12yo and older 10/19/2023 Influenza Quadravalent, MDCK , 0.5ml, preservative free (Flucelvax) 6mo and older 07/06/2018 Influenza Quadravalent, MDCK , 0.5ml, with preservative (Flucelvax) 6mo and older 07/26/2021 Influenza Quadravalent, jabari mbinant, 0.5ml, preservative free (Flublok) 18yo and older 07/19/2020 Influenza Quadrivalent, 0.5m l, preservative free (Fluarix; FluLaval; Fluzone) ages 6mo and older (Afluria) 3yo and older 07/23/2023,07/15/2022 Influenza Quadrivalent, with preservative (Fluzone; Afluria) 6mo and older 07/15/2019,07/08/2017,07/18/2015 Influenza trivalent, 0.5mL, preservative free (Fluarix; FluLaval; Fluzone) ages 6mo and older (Afluria) 3 years and older 07/30/2022,08/13/2021 Influenza trivalent, recombi nant, 0.5mL, preservative free (Flublok) 18yo and older 07/27/2024 Influenza trivalent, with preservative (Fluzone; Afluria) 6mo and older 07/30/2022,08/13/2021,07/06/2014 Influenza, Unspecified 08/13/2023 Pfizer (ages 12 & older) Biv alent, COVID-19 11/08/2022 Pfizer SARS-CoV-2 COVID-19, mRNA, LNP-S, preservative free 10/01/2023,11/08/2022,09/01/2021,2020,11/14/2020 Tdap Tetanus diptheria acell ular pertussis (Boostrix; Adacel) 7yo and older 12/12/2008 Zoster recombinant (Shingrix ) 19yo and older 01/11/2024,09/12/2023,08/03/2023 Surgical History Surgery Date Site/Laterality Comments OTHER SURGICAL HISTORY PROCEDURE: CT HYSTEROSCOPY DIV/RESCJ INTRAUTERINE SEPTUM COLONOSCOPY 11/17/08 PROCEDURE: CT COLONOSCOPY STOMA DX INCLUDING COLLJ SPEC SPX; COMMENT: Up to cecum, good preparation, enlarged internal hemorrhoids, otherwise normal colon exam OTHER SURGICAL HISTORY PROCEDURE: CT UNLISTED PROCEDURE EXTRAOCULAR MUSCLE TONSILLECTOMY ADENOIDECTOMY, BILATERAL MYRINGOTOMY AND TUBES PROCEDURE: CT TONSILLECTOMY & ADENOIDECTOMY <AGE 12 OTHER SURGICAL HISTORY PROCEDURE: CT UNLISTED LAPAROSCOPY PROCEDURE UTERUS SALPINGOOPHORECTOMY PROCEDURE: CT LAPAROSCOPY W/RMVL ADNEXAL STRUCTURES CHOLECYSTECTOMY Medical History Medical History Date Comments Endometriosis, site unspecified DX:Endometriosis, site unspecified Female infertility of unspec ified origin DX:Female infertility of uns pecified origin Other and unspecified noninf ectious gastroenteritis and colitis(558.9) DX:Other and unspec ified noninfectious gastroenteritis and colitis(558.9) Other specified personal his tory presenting hazards to health(V15.89) DX:Other specifie d personal history presenting hazards to health(V15.89) 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 DX:Specific phob ia Family History Medical History Relation Name Comments Breast cancer Aunt colleen unilateral Breast cancer Cousin 20-30s second cousin Heart failure Maternal Grandfather Stroke Maternal Grandfather Arthritis Mother Hyperlipidemia Mother Colon cancer Neg Hx Ovarian cancer Neg Hx Pancreatic cancer Neg Hx Prostate cancer Neg Hx Uterine cancer Neg Hx Relation Name Status Comments Aunt colleen Alive Cousin Alive Father Alive Maternal Grandfather Maternal Grandmother Mother Alive Paternal Grandfather Paternal Grandmother Social History Tobacco Use Types Packs/Day Years Used Date Smoking Tobacco: Never Smokeless Tobacco: Never Tobacco Cessation:Counseling Given: Not Answered Alcohol Use Standard Drinks/Week Comments Not Currently 0 (1 standard drink = 0.6 oz pur e alcohol) Comments No Sex and Gender Information Value Date Recorded Sex Assigned at Not on file Legal Sex Female 9:19 PM EST Gender Identity Not on file Sexual Orientation Not on file Obstetrics History Para Term AB IAB SAB Ectopic Multiple Livin g Live Births 0 0 0 0 0 0 0 0 0 0 0 Last Filed Vital Signs Vital Sign Reading Time Taken Comments Blood Pressure 118/82 12/28/2024 4:14 PM EDT Pulse 82 12/28/2024 4:14 PM EDT Temperature 36.9 ??C (98.5 ??F) 12/28/2024 4:14 PM ED T Respiratory Rate 16 12/20/2024 3:36 PM EDT Oxygen Saturation 97% 11/08/2024 2:42 PM EST Inhaled Oxygen Concentration - - Weight 52.6 kg (116 lb) 01/17/2025 10:51 AM EDT Height 162.6 cm (5' 4 ) 01/17/2025 10:51 AM EDT Body Mass Index 19.91 01/17/2025 10:51 AM EDT Plan of Treatment Upcoming Encounters Date Type Department Care Team (Late st Contact Info) Description 01/19/2025 9:15 AM EDT Appointment Radiology Department [address] [phone] 07/05/2025 3:45 PM EDT Office Visit Adult Medicine - [place] [address] [place] [phone] Leah Murguia MD [address] [place] [address] 01/18/2026 1:00 PM EDT [facility]ointment [facility] [address] [phone] Health Maintenance Due Date Last Done Comments DTaP,Tdap,and Td Vaccines (2 - Td or Tdap) 09/29/2025 12/12/2008 Postponed from 12/12/2018 (Patient Refused) Hypertension/CHF/CAD Annual BMP Blood Test 12/15/2025 12/15/2024, 05/17/2024, 05/17/2024 Depression Screening 12/28/2025 12/28/2024 Cervical Cancer Screening: HPV 09/04/2026 09/04/2021 Breast Cancer Screening 01/17/2027 01/18/20, 12/24/2023, 12/17/2022, Additional history exists Colorectal Cancer Screening: Colonoscopy 11/30/2028 11/30/2018 Cholesterol Screening (Lipid Panel) 12/15/2029 12/15/2024, 06/14/2024, 06/14/2024, Additional history exists Hepatitis C Screening Completed 05/16/2014 COVID-19 Vaccine Discontinued 10/19/2023, 11/2023, 11/08/2022, Additional history exists Zoster Vaccines Completed 01/11/2024, 08/29, 08/03/2023 Influenza Vaccine Completed 07/27/2024, , 07/23/2023, Additional history exists Social Influencers of Health Screening Discontinued 12/28/2024 HIB Vaccines Aged Out No longer eligi ble based on patient's age to complete this topic HIV Screening Discontinued HPV Vaccines Aged Out No longer eligi ble based on patient's age to complete this topic Hepatitis A Vaccines Aged Out No long er eligible based on patient's age to complete this topic Hepatitis B Vaccines Discontinued IPV Vaccines Aged Out No longer eligi ble based on patient's age to complete this topic MMR Vaccines Aged Out No longer eligi ble based on patient's age to complete this topic Meningococcal ACWY Vaccine Aged Out N o longer eligible based on patient's age to complete this topic Meningococcal B Vaccine Aged Out No l onger eligible based on patient's age to complete this topic Pneumococcal Vaccine: 50+ Years Discontinued Pneumococcal Vaccine: Pediatrics (0 to 5 Years) and At-Risk Patients (6 to 64 Years) Aged Out No longer eligible based on patient's age to complete this topic RSV Immunization Patients Under 20 months Aged Out No longer eligible based on patient's age to complete this topic Varicella Vaccines Aged Out No longer eligible based on patient's age to complete this topic Procedures Procedure Name Priority Date/Time Associated Diagnosis Comments MG MAMMO DIGITAL SCREENING W JOSE BILAT Routine 01/17/2025 11:02 AM EDT Encounter for screening mammogram for breast cancer CBC WITH AUTO DIFFERENTIAL Routine 12/15/2024 8:42 AM EDT Mixed hyperlipidemia LIPID PANEL WITH REFLEX TO DIRECT LDL Routine 12/15/2024 8:42 AM EDT Mixed hyperlipidemia HEPATIC FUNCTION PANEL Routine 12/15/2024 8:42 AM EDT Epigastric pain CBC AND DIFFERENTIAL Routine 12/15/2024 8:42 AM EDT Mixed hyperlipidemia BASIC METABOLIC PANEL Routine 12/15/2024 8:42 AM EDT Primary hypertension US ABDOMEN COMPLETE Routine 12/09/2024 7 :53 AM EDT Epigastric pain VENIPUNCTURE CHARGE Routine 11/29/2024 1 2:30 PM EST Family history of malignant neoplasm of breast [id number], RSV, FLU A AND B QUALITATIVE RT-PCR, LOCAL REFERENCE LAB Routine 11/08/2024 3:29 PM EST Viral upper respiratory tract infection HM HPV Routine 09/04/2021 COLONOSCOPY Routine 11/30/2018 HEPATITIS C SCREENING Routine 05/16/2014 from Last 3 Months or Most Recently Relevant to Health Maintenance Results * MG Mammo Digital Screening w Jose bilat (01/17/2025 11:02 AM EDT) Anatomical Region [...] year. [facility]amm[facility] location[facility] at [address], [address] -------- FINAL REPORT -------- Dictated By: Favian Fuentes Dictated Date: 01/17/2025 17:18 ET Assigned Physician: Favian Fuentes Reviewed and Electronically Signed By: Favian Fuentes Signed Date: 01/17/2025 17:27 ET Workstation ID: [id number] Transcribed By: Self Edit Transcribed Date: 01/17/2025 [...] Tomosynthesis. 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 TISSUE DENSITY: The breasts are [...] year. [facility]ammography location: [facility] at [address], [address] -------- FINAL REPORT -------- Dictated By: Favian Fuentes Dictated Date: 01/17/2025 17:18 ET Assigned Physician: Favian Fuentes Reviewed and Electronically Signed By: Favian Fuentes Signed Date: 01/17/2025 17:27 ET Workstation ID: [id number] Transcribed By: Self Edit Transcribed Date: 01/17/2025 17:18 ET us Self Referral Sppl IMG BI PROCEDURES Final Resul t * (ABNORMAL) Lipid panel with reflex to direct LDL (12/15/2024 8:42 AM EDT) Cholesterol 233(H) 0 - 200 mg/dL LAB CHEMISTRY METHOD 12/15/2024 12:43 PM EDT [facility] Triglycerides 61 0 - 150 mg/dL LAB CHEMISTRY METHOD 12/15/2024 12:43 PM EDT [facility] HDL 58 >=40 mg/dL LAB CHEMISTRY METHOD 12/15/2024 12:43 PM EDT [facility] LDL Calculated 163(H) 0 - 100 mg/dL LAB CHEMISTRY METHOD 12/15/2024 12:43 PM EDT [facility] VLDL Cholesterol Jose Armando 12.2 mg/dL LAB CHEMISTRY METHOD 12/15/2024 12:43 PM EDT [facility] Non HDL Chol. (LDL+VLDL) 175(H) <145 mg/dL LAB CHEMISTRY METHOD 12/15[facility]24 [facility] Chol/HDL Ratio 4.0 0.0 - 4.4 LAB CHEMISTRY METHOD 12/15/2024 12:43 PM [facility] Blood Venous blood specimen / Unknown Venipuncture / Unknown 12/15/2024 8:42 AM EDT 12/15/2024 8:42 AM EDT us Leah Murguia MD LAB BLOOD ORDERABL ES Final Result [facility] [address] [place] [address], * (ABNORMAL) CBC auto differential (12/15/2024 8:42 AM EDT) Pathologist [facility] WBC 5.4 4.8 - 10.8 K/mcL LAB HEMETOLOGY METHOD 12/15/2024 12:00 PM EDT [facility] RBC 4.00 3.80 - 4.80 M/mcL LAB HEMETOLOGY METHOD 12/15/2024 12:00 PM [facility] Hemoglobin 13.0 11.5 - 16.0 g/dL LAB HEMETOLOGY METHOD 12/15/2024 12:00 PM [facility] Hematocrit 39.1 35.0 - 47.0 % LAB HEMETOLOGY METHOD 12/15/2024 12:00 PM [facility] MCV 97.3 79.0 - 98.0 FL LAB HEMETOLOGY METHOD 12/15/2024 12:00 PM [facility] MCH 32.3(H) 27.0 - 32.0 pcg LAB HEMETOLOGY METHOD 12/15/2024 12:00 PM [facility] MCHC 33.2 32.0 - 37.0 g/dL LAB HEMETOLOGY METHOD 12/15/2024 12:00 PM [facility] RDW 11.5 11.0 - 15.0 % LAB HEMETOLOGY METHOD 12/15/2024 12:00 PM [facility] Platelets 279 130 - 400 K/mcL LAB HEMETOLOGY METHOD 12/15/2024 12:00 PM [facility] MPV 9.7 7.0 - 11.0 FL LAB HEMETOLOGY METHOD 12/15/2024 12:00 PM [facility] NRBC 0.0 <1.0 % LAB HEMETOLOGY METHOD 12/15/2024 12:00 PM [facility] NRBC Absolute 0.00 <0.10 K/mcL LAB HEMETOLOGY METHOD 12/15/2024 12:00 PM [facility] Neutrophils Relative 35.9 % LAB HEMETOLOGY METHOD 12/15/2024 12:00 PM [facility] Lymphocytes Relative 52.2 % LAB HEMETOLOGY METHOD 12/15/2024 12:00 PM [facility] Monocytes Relative 9.4 % LAB HEMETOLOGY METHOD 12/15/2024 12:00 PM [facility] Eosinophils Relative 1.7 % LAB HEMETOLOGY METHOD 12/15/2024 12:00 PM [facility] Basophils Relative 0.6 % LAB HEMETOLOGY METHOD 12/15/2024 12:00 PM [facility] Immature Granulocytes Relative 0.2 % LAB HEMETOLOGY METHOD 12/15/2024 12:00 PM [facility] Neutrophils Absolute 1.94 1.50 - 7.00 K/mcL LAB HEMETOLOGY METHOD 12/15/2024 12:00 PM [facility] Lymphocytes Absolute 2.82 1.00 - 5.00 K/mcL LAB HEMETOLOGY METHOD 12/15/2024 12:00 PM [facility] Monocytes Absolute 0.51 0.20 - 1.00 K/mcL LAB HEMETOLOGY METHOD 12/15/2024 12:00 PM [facility] Eosinophils Absolute 0.09 0.00 - 0.50 K/mcL LAB HEMETOLOGY METHOD 12/15/2024 12:00 PM [facility] Basophils Absolute 0.03 0.00 - 0.20 K/mcL LAB HEMETOLOGY METHOD 12/15/2024 12:00 PM [facility] Immature Granulocytes Absolute 0.01 0.00 - 0.03 K/mcL LAB HEMETOLOGY METHOD 12/15/2024 12:00 PM [facility] Blood Venous blood specimen / Unknown Venipuncture / Unknown 12/15/2024 8:42 AM EDT 12/15/2024 8:42 AM EDT us Leah Murguia MD LAB BLOOD ORDERABL ES Final Result [facility] [address] [place] [address], [place] [phone] * Hepatic function panel (12/15/2024 8:42 AM EDT) Total Protein 7.3 6.0 - 8.0 g/dL LAB CHEMISTRY METHOD 12/15/2024 12:43 PM EDT [facility] Albumin 4.1 3.2 - 5.0 g/dL LAB CHEMISTRY METHOD 12/15/2024 12:43 PM EDT [facility] Total Bilirubin 0.7 0.0 - 1.4 mg/dL LAB CHEMISTRY METHOD 12/15/2024 12:43 PM EDT [facility] Bilirubin, Direct 0.1 0.0 - 0.3 mg/dL LAB CHEMISTRY METHOD 12/15/2024 12:43 PM EDT [facility] Bilirubin, Indirect 0.6 0.0 - 1.1 mg/dL LAB CHEMISTRY METHOD 12/15/2024 12:43 PM EDT [facility] ALT (SGPT) 21 10 - 60 unit/L LAB CHEMISTRY METHOD 12/15/2024 12:43 PM [facility] AST (SGOT) 15 10 - 42 unit/L LAB CHEMISTRY METHOD 12/15/2024 12:43 PM EDT [facility] Alkaline Phosphatase 93 42 - 121 unit/L LAB CHEMISTRY METHOD 12/15/2024 12:43 PM EDT [facility] Blood Venous blood specimen / Unknown Venipuncture / Unknown 12/15/2024 8:42 AM EDT 12/15/2024 8:42 AM EDT us Linda DONOHUE LAB BLOOD ORDERABLES Final Result [facility] [address] [place] [address], [place] [phone] * Basic metabolic panel (12/15/2024 8:42 AM EDT) Sodium 140 133 - 145 mmol/L LAB CHEMISTRY METHOD 12/15/2024 12:43 PM [facility] Potassium 4.0 3.5 - 5.5 mmol/L LAB CHEMISTRY METHOD 12/15/2024 12:43 PM [facility] Chloride 106 96 - 110 mmol/L LAB CHEMISTRY METHOD 12/15/2024 12:43 PM [facility] CO2 27 21 - 32 mmol/L LAB CHEMISTRY METHOD 12/15/2024 12:43 PM [facility] Anion Gap 7 3 - 11 LAB CHEMISTRY METHOD 12/15/2024 12:43 PM [facility] Glucose 93 70 - 100 mg/dL LAB CHEMISTRY METHOD 12/15/2024 12:43 PM [facility] BUN 21 5 - 25 mg/dL LAB CHEMISTRY METHOD 12/15/2024 12:43 PM [facility] Creatinine 0.79 0.50 - 1.10 mg/dL LAB CHEMISTRY METHOD 12/15/2024 12:43 PM [facility] eGFR 87 >=60 mL/min/1. 73m2 LAB CHEMISTRY METHOD 12/15/2024 12:43 PM [facility] Comment:Calculation based on the??Chronic Kidney Disease Epidemiology Collaboration (CKD-EPI) equation refit??without adjustment for race. BUN/Creatinine Ratio 26.6 LAB CHEMISTRY METHOD 12/15/2024 12:43 PM [facility] Calcium 9.8 8.5 - 10.5 mg/dL LAB CHEMISTRY METHOD 12/15/2024 12:43 PM [facility] Blood Venous blood specimen / Unknown Venipuncture / Unknown 12/15/2024 8:42 AM EDT 12/15/2024 8:42 AM EDT us Leah Murguia MD LAB BLOOD ORDERABL ES Final Result [facility] [address] [place] [address], [place] [phone] * US Abdomen Complete (12/09/2024 7:53 AM EDT) Anatomical Region Laterality Modality Body Ultrasound 12/09/2024 10:0 3 AM EDT Impressions 12/09/2024 10:05 AM EDT Cholelithiasis. 1.4 x 1.6 x 1.8 cm hepatic cyst. -------- FINAL REPORT -------- Dictated By: Liliana Chong Dictated Date: 12/09/2024 10:03 ET Assigned Physician: Liliana Chong Reviewed and Electronically Signed By: Liliana Chong Signed Date: 12/09/2024 10:05 ET Workstation ID: [id number] Transcribed By: Self Edit Transcribed Date: 12/09/2024 10:03 ET Narrative 12/09/2024 10:05 AM EDT ABDOMINAL ULTRASOUND History: ??Abdominal pain. Comparison: Retroperitoneal ultrasound 06/15/2018. FINDINGS: There are innumerable tiny mobile gallstones layering in the dependent portion of the gallbladder.. The common bile duct is not dilated, measuring 4 mm. ??The gallbladder wall is not thickened. No pericholecystic fluid is seen. No ascites are seen. The visualized pancreas is normal in size and demonstrates normal echotexture. The liver measures 12.2 cm length and demonstrates normal echotexture. There is a 1.4 x 1.6 x 1.8 cm cyst of the right lobe of the liver. There is no evidence of intrahepatic ductal dilation. Normal hepatopedal flow is seen in the main portal vein. No evidence of hydronephrosis, mass, or calculus was seen in either kidney. ??The right kidney measures 9.7 cm in greatest length. ??The left kidney measures 9.6 cm in length. The spleen measures 7.7 cm in length. The visualized abdominal aorta and IVC are unremarkable. Procedure Note Liliana Chong MD - 12/09/2024 ABDOMINAL ULTRASOUND History: Abdominal pain. Comparison: Retroperitoneal ultrasound 06/15/2018. FINDINGS: There are innumerable tiny mobile gallstones layering in thedependent portion of the gallbladder.. The common bile duct is notdilated, measuring 4 mm. The gallbladder wall is not thickened. Nopericholecystic fluid is seen. No ascites are seen. The visualized pancreas is normal in size and demonstrates normalechotexture. The liver measures 12.2 cm length and demonstrates normal echotexture. There is a 1.4 x 1.6 x 1.8 cm cyst of the right lobe of the liver. There is no evidence of intrahepatic ductal dilation. Normal hepatopedalflow is seen in the main portal vein. No evidence of hydronephrosis, mass, or calculus was seen in eitherkidney. The right kidney measures 9.7 cm in greatest length. The leftkidney measures 9.6 cm in length. The spleen measures 7.7 cm in length. The visualized abdominal aorta and IVC are unremarkable. IMPRESSION: Cholelithiasis. 1.4 x 1.6 x 1.8 cm hepatic cyst. -------- FINAL REPORT -------- Dictated By: Liliana Chong Dictated Date: 12/09/2024 10:03 ET Assigned Physician: Liliana Chong Reviewed and Electronically Signed By: Liliana Chong Signed Date: 12/09/2024 10:05 ET Workstation ID: [id number] Transcribed By: Self Edit Transcribed Date: 12/09/2024 10:03 ET us Linda DONOHUE IMG US PROCEDURES Final Re sult * Venipuncture charge (11/29/2024 12:30 PM EST) Extra Tube Hold for add-ons. 11/29/2024 2:01 PM EST [facility] Comment:Auto resulted. Blood Venous blood specimen / Unknown Venipuncture / Unknown 11/29/2024 12:30 PM EST 11/29/2024 12:30 PM EST Iris CARDM LAB BLOOD ORDERABLES Final Resu lt [facility], * [id number], RSV, Influenza A and B qualitative RT-PCR (11/08/2024 3:29 PM EST) SARS COV-2 Not Detected Not Detected LAB MOLECULAR DIAGNOSTICS METHOD 11/09/2024 6:18 PM EST [facility] Comment: Disclaimer: The manner in which this information is used to guide patient care is the responsibility of the healthcare provider. Testing was performed using the [employer] Alinity m SARS-CoV-2 test. This test has been authorized by FDA under an Emergency Use Authorization (EUA). This test is only authorized for the duration of time the declaration that circumstances exist justifying the authorization of the emergency use of in vitro diagnostic tests for detection of SARS-CoV-2 virus and/or diagnosis of COVID-19 infection under section 564(b)(1) of the Act, 21 U.S.C. 360bbb- 3(b)(1), unless the authorization is terminated or revoked sooner. Fact sheet for Healthcare Providers can be found at: https://www.fda.gov/media/852859/download Fact sheet for Patients can be found at: https://www.fda.gov/media/660295/download Influenza A PCR Not Detected Not Detected LAB MOLECULAR DIAGNOSTICS METHOD 11/09/2024 6:18 PM EST [facility] Influenza B PCR Not Detected Not Detected LAB MOLECULAR DIAGNOSTICS METHOD 11/09/2024 6:18 PM EST [facility] RSV PCR Not Detected Not Detected LAB MOLECULAR DIAGNOSTICS METHOD 11/09/2024 6:18 PM [facility] Swab Nasopharyngeal structure / Unknown Non-blood Collection / Unknown 11/08/2024 3:29 PM EST 11/08/2024 3:29 PM EST Shivam DONOHUE LAB MICROBIOLOGY - GENERAL ORD ERABLES Final Result [facility] [address] [place] [address], * Cervical Cancer Screening: HPV (09/04/2021) [facility] Cervical Cancer Screening: HPV Negative, abstracted Historical Provider HEALTH MAINTENANCE Final Result * Colonoscopy (11/30/2018) Pathologist [facility] Colonoscopy No interpretation , abstracted Anatomical Region Laterality Modality Other Historical Provider HEALTH MAINTENANCE Final Result * Hepatitis C Screening (05/16/2014) [facility] Hepatitis C Screening Abstracted Historical Provider HEALTH MAINTENANCE Final Result from Last 3 Months or Most Recently Relevant to Health Maintenance Insurance [facility] Care Teams Electric Refrigerator Servicer Relationship Specialty Start Date End Date Leah Murguia MD [address] [place] [id number] PCP - General Internal Medicine 11/22/11
== END 2025-01-18 11:26 | disposition home or self-care (01) ==
LOC: HO.HPS 10:49
PROVIDERS: PCP Internal Medicine; Visit Provider Internal Medicine
DX: J45.909 Unspecified asthma, uncomplicated (principal); J30.9 Allergic rhinitis, unspecified
CPT/HCPCS: 99213

== ENCOUNTER → 2025-01-18 10:48 | Outpatient (BNVA) | payer BC, SELFPAY | PROVIDERS: PCP Internal Medicine; Visit Provider Internal Medicine ==

== ENCOUNTER 2025-07-12 14:01 | Outpatient (AMB) | payer BC, SELFPAY ==
[2025-07-12 14:10] VITALS: BP 120/82; PULSE 78; O2SAT 98; BMI 21.4
--- NOTE | 2025-07-12 14:10 | A.OFFVIS_ITS ---
Vital Signs 07/12/25 14:10 Height 5 ft 4 in Weight 124 lb 8.979 oz BMI 21.4 BP 120/82 Blood Pressure Location Lt brachial Position Sitting Pulse 78 Pulse Source Pulse Oximeter Pulse Oximetry (%) 98 Oxygen Delivery Method Room Air Intake Visit Reasons: Asthma Intake Note: pt is here for follow up and states only an episode a few weeks ago due to weather change. pt had gallbladder out in November Aged Or Disabled Care Worker Required: No Amortization Schedule Clerk: Amortization Schedule Clerk offered & declined Allergies amoxicillin Allergy (Unknown, Verified 07/12/25 14:25) stomach upset doxycycline (DOXYCYCLINE) Allergy (Unknown, Verified 07/12/25 14:25) NAUSEA & VOMITING erythromycin base (ERYTHROMYCIN BASE) Allergy (Unknown, Verified 07/12/25 14:) NAUSEA & VOMITING prednisone Adverse Reaction (Unknown, Verified 07/12/25 14:) emotional but liquid is ok Medication List - Last Reconciled 07/12/25 by Carly Cordero MD albuterol sulfate 90 mcg/actuation 2 puffs PO Q6H PRN apple cider vinegar 600 mg PO DAILY azelaic acid 15% topical QAM azelastine 2 sprays intranasal BID PRN calcium carbonate 600 mg PO DAILY cholecalciferol (vitamin D3) 50 mcg PO DAILY clotrimazole-betamethasone 1-0.05 % appl topical estradiol 0.01%(0.1mg/gram) 0.5 grams vaginal 3XW fluticasone propionate 50 mcg/actuation 1 spray intranasal DAILY PRN fluticasone propionate 110 mcg/actuation 2 puffs inhalation BID lactobacillus combination no.8 (Adult Probiotic) 3,000 mmu cells PO DAILY losartan 50 mg PO DAILY metronidazole 1% (Noritate) appl topical multivitamin 1 tab PO DAILY omega 3-hkv-goj-fish oil 60-90-500 mg (Fish Oil) 1 cap PO DAILY Do you need a note to return to daycare/school/sports/work: No HPI HPI Asthma: Details: PAC[place] , A [employer] FOR THE [employer]. [employer] NOW WORKING HALF A DAY FOR 4 DAYS, IS VERY HAPPY, AND HAS LESS STRESSFUL DAYS. HER BRONCHIAL ASTHMA FLARES UP ONLY ONCE IN A WHILE. SHE USES LIQUID PREDNISONE FOR A FEW DAYS FOR ANY ACUTE EXACERBATION AND, IN THE LAST 6 MONTHS DID NOT HAVE TO GO TO ANY URGENT CLINIC OR EMERGENCY ROOM. SHE DOES USE FLOVENT -110 2 PUFFS B.I.D. AND ALSO FLONASE 1 SPRAY IN EACH NOSTRIL DAILY. IN NOVEMBER OF THIS YEAR SHE HAD CHOLECYSTECTOMY FOR NUMEROUS GALLSTONES, BUT STILL HAS INTERMITTENT DISCOMFORT IN THE UPPER ABDOMEN, RELATED TO UNUSUAL FOODS. OVERALL SHE IS DOING VERY WELL. [facility] Medical History Cough Chest discomfort Asthma Allergic rhinitis Social History Patient Tobacco Use Status: Never used Tobacco Review of Systems Const All systems reviewed & are unremarkable except as noted in HPI and below Eyes Reports no additional complaints ENT Reports no additional complaints and Reports Normal hearing present Card Denies irregular heart rhythm and Denies leg edema Resp Reports as per HPI GI Reports heartburn (Controlled with Prilosec) Reports no additional complaints Skin/Breast Reports system reviewed and no additional complaints, except as documented Neuro Reports no additional complaints and Reports Normal hearing present Psych Reports no additional complaints Physical Exam Vital Signs: Last Vital Signs Pulse 78 07/12/25 14:10 BP 120/82 07/12/25 14:10 Pulse Ox 98 07/12/25 14:10 Oxygen Delivery Method Room Air 07/12/25 14:10 BMI result Body Mass Index 21.4 Looks sick with reddish face and congested nose. Const General: cooperative, comfortable, no acute distress, well developed and alert Orientation/consciousness: patient oriented x3 Limitations: no limitations HEENT Head: Yes normocephalic and Yes atraumatic Ears: hearing grossly normal bilaterally and external ears normal General nose exam: No nasal polyps present and Other nasal findings present (She has marked deflection of the nasal septum to the right side as usual,) Face and sinus: No sinuses nontender (Cheeks are red and on but sensitive to touch) Mouth: oropharynx abnormals Throat: Yes posterior oropharynx normal Eyes General: appearance normal, both eyes and all related structures Eyelids: Yes eyelids normal Sclerae: sclerae normal EOM: EOMs intact bilaterally Neck Neck: Yes normal visual inspection and Yes no lymphadenopathy Thyroid: Thyroid normal Lymphatic: no lymphadenopathy noted Chest Chest palpation & inspection: normal inspection of the chest, normal palpation of entire chest wall and no tenderness Resp Other: PERCUSSION. NOTE IS RESONANT BOTH LUNGS ARE CLEAR TO AUSCULTATION. NO WHEEZES RHONCHI OR CREPITATIONS ARE HEARD TODAY. Cardio Jugular venous distension: no JVD Palpation: normal PMI Rate: regular rate Rhythm: regular rhythm Heart sounds: no gallops and no murmurs Peripheral pulses: Peripheral pulses 2+ throughout GI Palpation (GI): Soft to palpation, nontender, No hepatosplenomegaly present and no masses Auscultation: normal bowel sounds Back/Spine/Pelvis Thoracic/Lumbar Spine: thoracic and lumbar spine normal to inspection Skin Other: warm, dry General skin exam: no rashes or lesions noted Neuro General: patient oriented x3 Cranial nerves: Yes Normal hearing present Cognition (Neuro): normal cognition Gait exam (Neuro): Normal gait present Extrem General: Yes normal to inspection, Yes capillary refill normal, Yes no clubbing, cyanosis or edema and Yes no pedal edema Psych Appearance: grossly normal and well kempt Speech and movement: Normal speech and movement present and Clear speech present Assessment & Plan Assessment & Plan (1) Asthma: Comment: SHE HAS CHRONIC BRONCHIAL ASTHMA, MOSTLY ALLERGIC, AND SOMETIMES SECONDARY TO VIRAL ILLNESS. AT PRESENT IT IS WELL CONTROLLED . Code(s): J45.909 - Unspecified asthma, uncomplicated Category: Medical Plan: CONTINUE FLOVENT-1102 PUFFS B.I.D. AND USE ALBUTEROL HFA 2 PUFFS Q 6 HOURS ONLY P.R.N. MINOR ACUTE EXACERBATIONS SHE CAN USE LIQUID PREDNISONE FOR 3 DAYS AT A TIME. ( 10 MG BID FOR 5 DAYS ) ADVISED TO CHECK PEAK FLOW AT LEAST ONCE A WEEK (2) Allergic rhinitis: Comment: SHE HAS CHRONIC ALLERGIC RHINITIS, FLARES UP DUE TO CHANGE IN WEATHER. CURRENTLY SHE HAS CONGESTION OF THE NOSE , MAINLY BECAUSE OF ACUTE VIRAL ILLNESS. Code(s): J30.9 - Allergic rhinitis, unspecified Category: Medical Plan: OK TO USE FLONASE-51 SPRAY IN EACH NOSTRIL DAILY. AND AZELASTIN 2 SPRAYS EACH NOSTRIL B.I.D. P.R.N. Coding Level of Care Code Est Pt Level 3 (61275) Diagnoses Asthma J45.909 Allergic rhinitis J30.9
--- OUTSIDE RECORDS SUMMARY | 2025-07-12 17:00 | XMS_ITS | Encounter Summary ---
Author Organization [facility] Address [address] [place] [address] Care Team Providers Care Scientific Research Associate Name Role Phone Leah Murguia MD Primary Care Prov ider Reason for Visit * Reason Onset Date Comments Sinusitis 11/03/2024 Encounter Details Date Type Department Care Team (Late st Contact Info) Description 11/03/2024 Nurse Triage Adult Medicine - [place] [address] [place] [phone] Leah Murguia MD [address] [place] [address] Social History Tobacco Use Types Packs/Day Years [...] period? No Protocols used: Sinus Pain or [id number]-[id number]-IW * Ingrid Solano - 11/03/2024 10:46 AM [...] traveled recently to another state outside of [place], [place], [place], [place], [place], [place], [place]? no o If yes, did you [...] of accident/Injury: No If yes, gather 3rd democrat insurance information [employer] Party Information: not applicable PCP: Leah Murguia MD Payor: [facility] / Plan: [facility] HMO / Product Type: *No Product type* / documented in this encounter Plan of Treatment Upcoming Encounters Date Type Department Care Team (Late st Contact Info) Description 01/18/2026 1:00 PM EDT Appointment [facility] [address] [phone] documented as of this encounter Visit Diagnoses Not on filedocumented in this encounter Additional Health Concerns Infection Onset Date Last Indicated Resolved Time Respiratory Rule-Out 11/08/2024 11/08/2024 025 6:18 PM EST COVID-19 Rule-Out 11/08/2024 11/08/2024 11/09/2024 6:18 PM EST documented as of this encounter Care Teams Scientific Research Associate Relationship Specialty Start Date End Date Leah Murguia MD [address] [place] [phone] PCP - General Internal Medicine 11/22/11 documented as of this encounter
--- OUTSIDE RECORDS SUMMARY | 2025-07-12 17:00 | XMS_ITS | Clinical Summary ---
Author Organization [facility] Address [address] [place] [address] Phone Care Team Providers Care Land Title Examiner Name Role Phone Leah Murguia MD Primary Care Prov ider Allergies Active Allergy Reactions Criticality Noted Date Comments Doxycycline Other 07/31/2018 Up all night, emotional, just throws me Erythromycin 04/09/2006 Stomach upset Metronidazole Diarrhea,Nausea And Vomiting 04/05/2019 Penicillins 03/02/2007 gi upset Medications APPLE CIDER VINEGAR ORAL Take by mouth. Ac tive ELDERBERRY FRUIT ORAL Take by mouth. Activ e multivitamin (MULTIPLE VITAMINS ORAL) Take 1 tablet by mouth 1 (one) time each day. Active OMEPRAZOLE ORAL Take 20 mg by mouth 1 (one) time each day. Active Lactobacillus acidophilus (PROBIOTIC ORAL) Take 1 capsule by mouth 1 (one) time each day. Active vitamin E acetate (VITAMIN E ORAL) Take by mouth. Activ e azelaic acid (FINACEA) 15 % gel 1 (one) time each day. 3 Active azelastine (ASTELIN) 137 mcg (0.1 %) nasal spray Administer 2 sprays into each nostril 2 (two) times a day. DIRECTED 0 Active cetirizine (ZyrTEC) 10 mg tablet Take 1 tablet (10 mg total) by mouth 1 (one) time each day. Active chlorphen-pseudo eph-ibuprofen 2-30-200 mg tablet Take by mouth. Activ e cholecalciferol (VITAMIN D-3) 25 mcg (1,000 unit) capsule Take by mouth. Activ e fluticasone HFA (FLOVENT HFA) 110 mcg/actuation inhaler Inhale 2 puffs by mouth 2 (two) times a day. Am and pm Active naproxen sodium 220 mg capsule Take by mouth. Active omega-3 acid ethyl esters (LOVAZA) 1 gram capsule Take by mouth. Activ e estradioL (ESTRACE) 0.01 % (0.1 mg/gram) vaginal cream 0.5 gram vaginally every M,W,F 42.5 g 3 5 Active losartan (COZAAR) 50 mg tablet TAKE 1 TABLET BY MOUTH EVERY DAY 90 tablet 1 5 Active vitamin A 2,400 mcg capsule Take 1 capsule (8,000 Units total) by mouth 1 (one) time each day. Active Active Problems Problem Noted Date Diagnosed Date Chest discomfort 04/18/2025 Assessment & Plan (04/18/2025 2:13 PM EDT): Is not an ischemic chest pain. Do not think it is caused by pericardial fluid either. She been taking fairly amount of NSAID. Suggest to take PPI more consistently for few months to see whether that helps the symptoms. Pericardial effusion 04/15/2025 Assessment & Plan (04/18/2025 2:13 PM EDT): CT report small pericardial effusion. Unfortunately CT imaging is not available for me to review. Small amount of pericardial effusion is not rare in a normal population. She has no symptoms to suggest pericarditis, as a matter fact, she had no symptoms with pericardial fluid. The pain below the rib cage was not caused by the fluid. She has no symptom with intense exercise or deep breathing and little fluid does not affect his daily activity. Most likely, this is benign insignificant finding. I will schedule echocardiogram to have a further evaluation. Meantime, I will check CRP and sed rate. Orders: Ambulatory referral to Cardiology ECG 12 lead Transthoracic echocardiogram (TTE) complete with PRN contrast, bubble, strain, and 3D order panel; Future High sensitivity CRP; Future Sedimentation rate, automated; Future Family history of breast cancer 02/02/2025 Overview (02/02/2025): Empower genetic screening negative. JudithFlorinCarlos Lifetime Breast Cancer Risk 14.2%. LLQ pain 12/20/2024 Assessment & Plan (02/03/2025 2:41 PM EDT): Resolved. Explained that based on normal US and location of intermittent pain, likely GI related. Encouraged her to keep her bowels soft and incorporate plenty of water and fiber in diet. Assessment & Plan (12/20/2024 3:56 PM EDT): [...] Plan: Well controlled. Continue MWF Estrace cream. Assessment & Plan (02/03/2025 2:40 PM EDT): Well controlled. Continue MWF Estrace cream. Skin [...] Encounters Date Type Department Care Team Description 04/22/2025 11:00 AM EDT Ancillary Procedure [facility] - [address] [place] [id number] Pericardial effusion 04/18/2025 10:20 AM EDT Office Visit [facility] - [address] [place] [phone] Rae Galarza MD Chest discomfort (Primary Dx); Pericardial effusion from Last 3 Months Immunizations Immunization Administration Dates Next Due COVID-19 (Pfizer/Comirnaty) 12yo [...] trivalent, recombi nant, 0.5mL, preservative free (Flublok) 9yo and older 07/27/2024 Influenza trivalent, with preservative (Fluzone; Afluria) 6mo and older 07/30/2022,08/13/2021,07/06/2014 Influenza, Unspecified 08/13/2023 Pfizer (ages 12 & older) Biv alent, COVID-19 11/08/2022 Pfizer SARS-CoV-2 COVID-19, mRNA, LNP-S, preservative free 10/01/2023,11/08/2022,09/01/2021,2020,11/14/2020 Tdap Tetanus diptheria acell ular pertussis (Boostrix; Adacel) 7yo and older 12/12/2008 Zoster recombinant (Shingrix ) 19yo and older 01/11/2024,09/12/2023,08/03/2023 Surgical History Surgery Date Site/Laterality Comments OTHER SURGICAL HISTORY PROCEDURE: AL HYSTEROSCOPY DIV/RESCJ INTRAUTERINE SEPTUM COLONOSCOPY 11/17/08 PROCEDURE: AL COLONOSCOPY STOMA DX INCLUDING COLLJ SPEC SPX; COMMENT: Up to cecum, good preparation, enlarged internal hemorrhoids, otherwise normal colon exam OTHER SURGICAL HISTORY PROCEDURE: AL UNLISTED PROCEDURE EXTRAOCULAR MUSCLE TONSILLECTOMY ADENOIDECTOMY, BILATERAL MYRINGOTOMY AND TUBES PROCEDURE: AL TONSILLECTOMY & ADENOIDECTOMY <AGE 12 OTHER SURGICAL HISTORY PROCEDURE: AL UNLISTED LAPAROSCOPY PROCEDURE UTERUS SALPINGOOPHORECTOMY PROCEDURE: AL LAPAROSCOPY W/RMVL ADNEXAL STRUCTURES CHOLECYSTECTOMY Medical History [...] History Relation Name Comments Breast cancer Aunt ma unilateral Breast cancer Cousin 20-30s second cousin Heart failure Maternal Grandfather Stroke Maternal Grandfather Arthritis Mother Hyperlipidemia Mother Colon cancer Neg Hx Ovarian cancer Neg Hx Pancreatic cancer Neg Hx Prostate cancer Neg Hx Uterine cancer Neg Hx Relation Name Status Comments Aunt ma Alive Cousin Alive Father Alive Maternal Grandfather [...] Sign Reading Time Taken Comments Blood Pressure 136/62 04/18/2025 10:25 AM EDT Pulse 74 04/18/2025 10:25 AM EDT Temperature 36.9 C (98.4 F) 03/29/2025 10:39 AM EDT Respiratory Rate 15 02/03/2025 2:25 PM EDT Oxygen Saturation 96% 04/18/2025 10:25 AM EDT Inhaled Oxygen Concentration - - Weight 56.2 kg (124 lb) 04/22/2025 11:05 AM EDT Height 162.6 cm (5' 4 ) 04/22/2025 11:05 AM EDT Body Mass Index 21.28 04/22/2025 11:05 AM EDT Plan of Treatment Upcoming Encounters Date Type Department Care Team (Late st Contact Info) Description 01/18/2026 1:00 PM EDT [facility]ointment [facility] at [address] [phone] Health Maintenance Due Date Last Done Comments Influenza Vaccine (#1) 2025 , 08/13/2023, 07/23/2023, Additional history exists DTaP,Tdap,and Td Vaccines (2 - Td or Tdap) 09/29/2025 12/12/2008 Postponed from 12/12/2018 (Patient Refused) Hypertension/CHF/CAD Annual BMP Blood Test 12/15/2025 12/15/2024, 05/17/2024, 05/17/2024 Cervical Cancer Screening: HPV 09/04/2026 09/04/2021 Breast Cancer Screening 01/17/2027 01/18/20, 12/24/2023, 12/17/2022, Additional history exists Colorectal Cancer Screening: Colonoscopy 11/30/2028 11/30/2018 Cholesterol Screening (Lipid Panel) 12/15/2029 12/15/2024, 06/14/2024, 06/14/2024, Additional history exists RSV Immunization Adult Patients (1 - 1-dose 75+ series) 2041 Hepatitis C Screening Completed 05/16/2014 COVID-19 Vaccine Discontinued 10/19/2023, 11/2023, 11/08/2022, Additional history exists Zoster Vaccines Completed 01/11/2024, 08/29, 08/03/2023 Social Influencers of Health Screening Discontinued 12/28/2024 Depression Screening Completed 02/03/2025 HIB Vaccines Aged Out No longer eligi [...] this topic Pneumococcal Vaccine: 50+ Years Discontinued RSV Immunization Patients Under 20 months Aged Out No longer eligible based on patient's age to complete this topic Varicella Vaccines Aged Out No longer eligible based on patient's age to complete this topic Procedures Procedure Name Priority Date/Time Associated Diagnosis Comments TRANSTHORACIC ECHOCARDIOGRAM (TTE) COMPLETE Routine 04/22/2025 11:33 AM EDT Pericardial effusion C REACTIVE PROTEIN, HIGH SENSITIVITY Routine 04/18/2025 11:34 AM EDT Pericardial effusion SEDIMENTATION RATE Routine 04/18/2025 11 :34 AM EDT Pericardial effusion ECG 12-LEAD Routine 04/18/2025 10:32 AM EDT Pericardial effusion MG MAMMO DIGITAL SCREENING W JOSE BILAT Routine 01/17/2025 11:02 AM EDT Encounter for screening mammogram for breast cancer BASIC METABOLIC PANEL Routine 12/15/2024 8:42 AM EDT Primary hypertension LIPID PANEL WITH REFLEX TO DIRECT LDL Routine 12/15/2024 8:42 AM EDT Mixed hyperlipidemia HM HPV Routine 09/04/2021 HM COLONOSCOPY Routine 11/30/2018 HM HEPATITIS C SCREENING Routine 05/16/2014 from Last 3 Months or Most Recently Relevant to Health Maintenance Results * TRANSTHORACIC ECHOCARDIOGRAM (TTE) COMPLETE (04/22/2025 11:33 AM EDT) Left Atrium Minor Torrance 4.5 cm CV PACS Left Atrium Major Torrance 4.2 cm CV PACS LA Area Sys (A2C) 12 cm2 CV PACS LA Area Sys (A4C) 13 cm2 CV PACS LA Volume (BP) 30 mL CV PACS RA Area 9.7 cm2 CV PACS RA 2D Volume 19 mL CV PACS Aortic Sinus Valsalva 2.9 cm CV PACS Ascending Aorta 2.9 cm CV PACS IVSD 0.7 0.6 - 0.9 cm CV PACS LVIDD 4.1 3.8 - 5.2 cm CV PACS LVIDS 2.7 2.2 - 3.5 cm CV PACS LVOT Diameter 2.0 cm CV PACS LVPWD 0.8 0.6 - 0.9 cm CV PACS MV E' Tissue Velocity Lateral 7 cm/s CV PACS MV E' Tissue Velocity Septal 6 cm/s CV PACS LVOT Area 3.1 cm2 CV PACS MV Deceleration Harrison 4.7 m/s2 CV PACS E Wave Deceleration Time 160 119 - 242 ms CV PACS MV PHT 47 ms CV PACS MV Peak A Rosalino 0.82 m/s CV PACS MV Peak E Rosalino 0.75 m/s CV PACS MV Area PHT 4.7 cm2 CV PACS RV Diastolic Basal Dimension 3.4 2.5 - 4.1 cm CV PACS RV S' 13 cm/s CV PACS TAPSE 24 mm CV PACS E/E' Ratio Septal 13 CV PACS E/E' Ratio Averaged 12 CV PACS Relative Wall Thickness ratio 0.39 CV PACS FS 34 % CV PACS LV Mass 2D 89 g CV PACS Ascending Aorta Index 1.81 cm/m2 CV PACS RA 2D Volume Index 12 mL/m2 CV PACS LVIDD Index 2.56 cm/m2 CV PACS LVIDS Index 1.69 cm/m2 CV PACS E/A Ratio 0.9 CV PACS E/E' Ratio Lateral 11 CV PACS LA Volume Index (BP) 19 mL/m2 CV PACS LV Mass Index 2D 56 g/m2 CV PACS BSA 1.59 m2 CV PACS Est. RA Pressure 3 mmHg CV PACS Anatomical Region Laterality Modality Ultrasound Narrative 05/05/2025 2:13 PM EDT 1. Normal biventricular size and systolic function. Normal left ventricular regional wall motion with an ejection fraction of 60 to 65%. 2. No hemodynamically significant valve disease. 3. There is only a trivial, predominantly posterior pericardial effusion of no hemodynamic significance. Left Ventricle Left ventricle cavity size is normal. Wall thickness is normal. Systolic function is normal with an ejection fraction of 60-65%. There are no regional LV wall motion abnormalities. Indeterminate diastolic function. Left atrial pressure is inconclusive. Right Ventricle Right ventricle cavity appears normal. Systolic function is normal. Left Atrium Left atrium cavity size is normal. Right Atrium Right atrium cavity is normal. IVC/SVC Inferior vena cava structure is normal. Mitral Valve Mitral valve structure is normal. There is no regurgitation or stenosis. Tricuspid Valve The leaflets exhibit normal excursion. There is no regurgitation or stenosis. Cannot assess RVSP. Aortic Valve The aortic valve is trileaflet. There is no regurgitation or stenosis. Pulmonic Valve Visualized portions of the pulmonic valve appear normal. There is no regurgitation or stenosis. Ascending Aorta The aorta appears normal in size. Pericardium There is a small anterior epicardial fat pad noted. There is a trivial pericardial effusion. Study Details Overall the study quality was adequate. Rae Galarza MD CV ECHO PROCEDURES Final Result * Sedimentation rate, automated (04/18/2025 11:34 AM EDT) Sed Rate 5 0 - 30 mm/hr LAB HEMETOLOGY METHOD 04/18/2025 1:02 PM EDT [facility] Blood Venous blood specimen / Unknown Venipuncture / Unknown 04/18/2025 11:34 AM EDT 04/18/2025 12:39 PM EDT Rae Galarza MD LAB BLOOD ORDERABLES Final Resul t Performing Organization Address [facility] de Phone Number [facility] [address] [place] [address], [place] [phone] * High sensitivity CRP (04/18/2025 11:34 AM EDT) CRP, High Sensitivity 1.00 mg/L LAB CHEMISTRY METHOD 04/18/2025 2:16 PM EDT [facility] Comment: Cardio CRP Relative Risk Categories Low <1.0 mg/L Average 1.0 - 3.0 mg/L High >3.0 mg/L Levels >10.0 mg/L should be ignored and repeated when the patient is stable and infection or inflammation is ruled out. HRT (estrogens) consistently increase cardio CRP levels. Risk estimates for women on HRT may need to be calibrated downward. Blood Venous blood specimen / Unknown Venipuncture / Unknown 04/18/2025 11:34 AM EDT 04/18/2025 12:42 PM EDT us Rae Galarza MD LAB BLOOD ORDERABLES Final Resul t Performing Organization Address [facility] Co de Phone Number [facility] [address] [place] [address], [place] [phone] * ECG 12 lead (04/18/2025 10:32 AM EDT) Ventricular Rate ECG 74 BPM GEMUSE Atrial Rate 74 BPM GEMUSE P-R Interval 130 ms GEMUSE QRS Duration 76 ms GEMUSE Q-T Interval 358 ms GEMUSE QTc 397 ms GEMUSE P Wave Torrance 79 degrees GEMUSE R Torrance 83 degrees GEMUSE T Torrance 84 degrees GEMUSE ECG Interpretation Normal sinus rhythm with sinus arrhythmia Normal ECG No previous ECGs available Confirmed by Anali GALARZA, RAE ([id number]) on 04/18/2025 4:27:34 PM GEMUSE 04/18/2025 10:3 2 AM EDT 04/18/2025 4:27 PM EDT Rae Galarza MD ECG ORDERABLES Final Result [facility] * MG Mammo Digital Screening w Jose bilat (01/17/2025 11:02 AM EDT) Anatomical Region Laterality Modality Breast Bilateral Mammography 01/17/2025 5:18 PM EDT Impressions 01/17/2025 5:27 PM EDT No mammographic evidence of malignancy. No suspicious interval change. A negative mammogram in the presence of a clinically suspicious palpable abnormality does not preclude the possibility of malignancy or alter the indications for biopsy. ASSESSMENT: BI-RADS 1: NEGATIVE RECOMMENDATION(S): 1: Routine screening mammogram BILATERAL in 1 year. [facility]amm[facility] location[facility] [address], [address] -------- FINAL REPORT -------- Dictated By: Favian Fuentes Dictated Date: 01/17/2025 17:18 ET Assigned Physician: Favian Fuentes Reviewed and Electronically Signed By: Favian Fuentes Signed Date: 01/17/2025 17:27 ET Workstation ID: [id number] Transcribed By: Self Edit Transcribed Date: 01/17/2025 17:18 ET Narrative 01/17/2025 5:27 PM EDT EXAM: SCREENING MAMMOGRAPHY, BILATERAL HISTORY: SCREENING. Family history of breast cancer; diagnosed at age 60, 2nd cousin premenopausal COMPARISON: 12/24/23, 12/16/22, 12/13/21, 12/11/20 TECHNIQUE: Synthesized CC and MLO projections of each breast. Tomosynthesis of each breast in the CC and MLO projections. ADDITIONAL IMAGING: Craniocaudal view of the right breast exaggerated toward the axilla using Tomosynthesis. Computer-aided detection was employed with the [employer] AI 3-D. TISSUE DENSITY: The breasts are heterogeneously dense, which may obscure small masses. (BI-RADS category C) FINDINGS: RIGHT BREAST: No suspicious mass. No suspicious calcification. No distortion. No additional suspicious right breast findings LEFT BREAST: No suspicious mass. No suspicious calcification. No distortion. No additional suspicious left breast findings Procedure [...] Tomosynthesis. Computer-aided detection was employed with the [employer] AI 3-D. TISSUE DENSITY: The breasts are [...] year. [facility]amm[facility] location: [facility] at [address], [address] -------- FINAL REPORT -------- Dictated By: Favian Fuentes Dictated Date: 01/17/2025 17:18 ET Assigned Physician: Favian Fuentes Reviewed and Electronically Signed By: Favian Fuentes Signed Date: 01/17/2025 17:27 ET Workstation ID: [id number] Transcribed By: Self Edit Transcribed Date: 01/17/2025 17:18 ET us Self Referral Sppl IMG BI PROCEDURES Final Resul t * (ABNORMAL) Lipid panel with reflex to direct LDL (12/15/2024 8:42 AM EDT) Cholesterol 233(H) 0 - 200 mg/dL LAB CHEMISTRY METHOD 12/15/2024 12:43 PM EDT [facility] Triglycerides 61 0 - 150 mg/dL LAB CHEMISTRY METHOD 12/15/2024 12:43 PM EDT [facility] HDL 58 >=40 mg/dL LAB CHEMISTRY METHOD 12/15/2024 12:43 PM EDT [facility] LDL Calculated 163(H) 0 - 100 mg/dL LAB CHEMISTRY METHOD 12/15/2024 12:43 PM EDT [facility] VLDL Cholesterol Jose Armando 12.2 mg/dL LAB CHEMISTRY METHOD 12/15/2024 12:43 PM EDT [facility] Non HDL Chol. (LDL+VLDL) 175(H) <145 mg/dL LAB CHEMISTRY METHOD 12/15/2024 12:43 PM EDT [facility] Chol/HDL Ratio 4.0 0.0 - 4.4 LAB CHEMISTRY METHOD 12/15/2024 12:43 PM T [facility] Blood Venous blood specimen / Unknown Venipuncture / Unknown 12/15/2024 8:42 AM EDT 12/15/2024 8:42 AM EDT us Leah Murguia MD LAB BLOOD ORDERABL ES Final Result [facility] [address] [place] [address], [place] [phone] * Basic metabolic panel (12/15/2024 8:42 AM EDT) Sodium 140 133 - 145 mmol/L LAB CHEMISTRY METHOD 12/15/2024 12:43 PM [facility] Potassium 4.0 3.5 - 5.5 mmol/L LAB CHEMISTRY METHOD 12/15/2024 12:43 PM [facility] Chloride 106 96 - 110 mmol/L LAB CHEMISTRY METHOD 12/15/2024 12:43 PM [facility] CO2 27 21 - 32 mmol/L LAB CHEMISTRY METHOD 12/15/2024 12:43 PM [facility] Anion Gap 7 3 - 11 LAB CHEMISTRY METHOD 12/15/2024 12:43 PM [facility] Glucose 93 70 - 100 mg/dL LAB CHEMISTRY METHOD 12/15/2024 12:43 PM [facility] BUN 21 5 - 25 mg/dL LAB CHEMISTRY METHOD 12/15/2024 12:43 PM [facility] Creatinine 0.79 0.50 - 1.10 mg/dL LAB CHEMISTRY METHOD 12/15/2024 12:43 PM [facility] eGFR 87 >=60 mL/min/1. 73m2 LAB CHEMISTRY METHOD 12/15/2024 12:43 PM [facility] Comment:Calculation based on the Chronic Kidney Disease Epidemiology Collaboration (CKD-EPI) equation refit without adjustment for race. BUN/Creatinine Ratio 26.6 LAB CHEMISTRY METHOD 12/15/2024 12:43 PM [facility] Calcium 9.8 8.5 - 10.5 mg/dL LAB CHEMISTRY METHOD 12/15/2024 12:43 PM [facility] Blood Venous blood specimen / Unknown Venipuncture / Unknown 12/15/2024 8:42 AM EDT 12/15/2024 8:42 AM EDT us Leah Murguia MD LAB BLOOD ORDERABL ES Final Result [facility] [address] [place] [address], * Cervical Cancer Screening: HPV (09/04/2021) Pathologist [facility] Cervical Cancer Screening: HPV Negative, abstracted Historical Provider HEALTH MAINTENANCE Final Result * Colonoscopy (11/30/2018) Pathologist [facility] Colonoscopy No interpretation , abstracted Anatomical Region Laterality Modality Other Historical Provider HEALTH MAINTENANCE Final Result * Hepatitis C Screening (05/16/2014) Pathologist [facility] Hepatitis C Screening Abstracted Historical Provider HEALTH MAINTENANCE Final Result from Last 3 Months or Most Recently Relevant to Health Maintenance Insurance [id number] [place] [address] Care Teams Land Title Examiner Relationship Specialty Start Date End Date Leah Murguia MD [address] [place] [phone] PCP - General Internal Medicine 11/22/11
== END 2025-07-12 14:38 | disposition home or self-care (01) ==
LOC: HO.HPS 14:01
PROVIDERS: PCP Internal Medicine; Referring Provider Internal Medicine; Visit Provider Internal Medicine
DX: J45.909 Unspecified asthma, uncomplicated (principal); J30.9 Allergic rhinitis, unspecified
CPT/HCPCS: 99213